=== PATIENT | male | born 1970 | race Caucasian/White ===

== ENCOUNTER 2020-01-10 14:39 | Emergency (ER) | payer MEDICAID ==
[~2020-01-10] VITALS: Ht 185.4 cm; Wt 78.0 kg
[~2020-01-10 14:39] MED LIST: ALLO100T PO; DIAZ5TAB PO; HYDR-3965 PO; NICO-687 TD; POTA10TA19 PO
[2020-01-10 14:41] VITALS: BP 112/68
--- NOTE | 2020-01-10 16:15 | NUR ---
Pt left the fast track area to go out and smoke after being told he could not do that by a tech.
[2020-01-10] MEDS ORDERED: DICL50TA8 PO (16:47)
--- NOTE | 2020-01-10 17:15 | NUR ---
Pt returns to the ED lobby wanting to come back in and be seen. Pt allowed to return. Pt refused knee immobilizer and crutches. Pt then left again with discharge papers in hand, no assessment by RN.
== END 2020-01-10 17:43 | disposition home or self-care (01) ==
LOC: ER 14:39
DX: M25.562 Pain in left knee (principal); Z88.0 Allergy status to penicillin; Z79.899 Other long term (current) drug therapy
CPT/HCPCS: 73560; 99283

== ENCOUNTER 2020-01-22 18:21 | Emergency (ER) | payer MEDICAID ==
[~2020-01-22] VITALS: Ht 180.3 cm; Wt 76.3 kg
[~2020-01-22 18:21] MED LIST changes: +DICL50TA8 PO
[2020-01-22 18:26] VITALS: BP 150/95
== END 2020-01-22 19:22 | disposition home or self-care (01) ==
LOC: ER 18:21
DX: S00.01XA Abrasion of scalp, initial encounter (principal); Z86.69 Personal history of other diseases of the nervous system and sense organs; Z59.0 Homelessness; Z79.899 Other long term (current) drug therapy; X58.XXXA Exposure to other specified factors, initial encounter; Y93.89 Activity, other specified; Y92.89 Other specified places as the place of occurrence of the external cause; Y99.8 Other external cause status
CPT/HCPCS: 99282

== ENCOUNTER 2020-01-24 09:51 | Emergency (ER) | payer MEDICAID ==
[~2020-01-24] VITALS: Ht 180.3 cm; Wt 79.5 kg
[2020-01-24] MEDS ORDERED: CEPH250T PO (10:01)
[2020-01-24 10:02] VITALS: BP 166/105
--- NOTE | 2020-01-24 10:10 | NUR ---
Seen and asssessed patient in triage by provider Leatha GUERIN.
== END 2020-01-24 10:12 | disposition home or self-care (01) ==
LOC: ER 09:51
DX: S01.00XA Unspecified open wound of scalp, initial encounter (principal); L03.811 Cellulitis of head [any part, except face]; F15.90 Other stimulant use, unspecified, uncomplicated; Z86.69 Personal history of other diseases of the nervous system and sense organs; Z59.0 Homelessness; Z79.2 Long term (current) use of antibiotics; Z79.899 Other long term (current) drug therapy; X58.XXXA Exposure to other specified factors, initial encounter; Y93.89 Activity, other specified; Y92.89 Other specified places as the place of occurrence of the external cause; Y99.8 Other external cause status
CPT/HCPCS: 99283

== ENCOUNTER 2020-02-23 09:47 | Emergency (ER) | payer MEDICAID ==
[~2020-02-23] VITALS: Ht 180.3 cm; Wt 80.0 kg
--- NOTE | 2020-02-23 10:19 | NUR ---
patient bp sbp 90's, Dr Belcher made aware,in addition,patient was also complaining of leg and shoulder pain,MD aware.
--- NOTE | 2020-02-23 10:20 | NUR ---
patient on trendelenberg.
--- NOTE | 2020-02-23 11:15 | NUR ---
c/o left arm and shoulder pain,Dr. Stacy made aware.
[2020-02-23 11:34] LABS: BASOPHILS # (AUTO) 0.1 X10'3 (0-0.2); BASOPHILS % (AUTO) 0.6 % (0-1); EOSINOPHILS # (AUTO) 0.1 X10'3 (0-0.9); EOSINOPHILS % (AUTO) 1.1 % (0-6); HEMATOCRIT 40.9 % (42.0-52.0); HEMOGLOBIN 13.2 g/dl (14.0-17.9); LYMPHOCYTES # (AUTO) 1.5 X10'3 (1.1-4.8); LYMPHOCYTES % (AUTO) 12.4 % (21-51); MEAN CORPUSCULAR HGB CONC 32.3 g/dL (33.0-36.5); MEAN CORPUSCULAR VOLUME 95.9 FL (78-98); MEAN PLATELET VOLUME 7.3 FL (7.4-10.4); MONOCYTES % (AUTO) 8.6 % (2-12); NEUTROPHILS # (AUTO) 9.4 X10'3 (1.8-7.7); NEUTROPHILS % (AUTO) 77.3 % (42-75); PLATELET COUNT 264 X10'3 (140-440); RED BLOOD COUNT 4.26 X10'6 (4.70-6.10); RED CELL DISTRIBUTION WIDTH 14.9 % (11.5-14.5); WHITE BLOOD COUNT 12.2 X10'3 (4.5-11.0)
[2020-02-23] MEDS ORDERED: acetaminophen 325mg tablet PO ONE (11:45)
[2020-02-23] MEDS ORDERED: ibuprofen tablet 400 MG TABLET PO ONE (11:45)
[2020-02-23 11:48] LABS: ALANINE AMINOTRANSFERASE 18 U/L (12-78); ALBUMIN 2.8 G/DL (3.4-5.0); ALBUMIN/GLOBULIN RATIO 0.7 (1.1-1.5); ALKALINE PHOSPHATASE 82 IU/L (46-116); ANION GAP 9 (8-16); ASPARTATE AMINO TRANSFERASE 24 U/L (10-37); BILIRUBIN,TOTAL 0.3 MG/DL (0.1-1.0); BLOOD UREA NITROGEN 11 MG/DL (7-18); BUN/CREATININE RATIO 12.2 (5.4-32.0); CALCIUM 8.4 MG/DL (8.5-10.1); CHLORIDE 108 MMOL/L (99-107); GLUCOSE 97 MG/DL (70-104); SODIUM 142 MMOL/L (135-145); TOTAL CARBON DIOXIDE 25.2 MMOL/L (24-32); TOTAL PROTEIN 6.9 G/DL (6.4-8.2); eGFR 89 ML/MIN
--- NOTE | 2020-02-23 11:54 | NUR ---
Pt states has been drinking a lot of alcohol lately. Last drank a beer this morning, whiskey the prior day. Pt states "alot" and thinks he is going through withdrawals.
--- NOTE | 2020-02-23 12:00 | NUR ---
Radiology at bedside.
[2020-02-23 13:25] VITALS: BP 123/93
== END 2020-02-23 13:15 | disposition home or self-care (01) ==
LOC: ER 09:47
DX: I95.9 Hypotension, unspecified (principal); M25.512 Pain in left shoulder; H53.8 Other visual disturbances; M54.2 Cervicalgia; F17.200 Nicotine dependence, unspecified, uncomplicated; F10.10 Alcohol abuse, uncomplicated; F15.90 Other stimulant use, unspecified, uncomplicated; Z86.69 Personal history of other diseases of the nervous system and sense organs; Z59.0 Homelessness; Z79.899 Other long term (current) drug therapy
CPT/HCPCS: 36415; 71045; 73030; 80053; 83605; 84484; 85025; 93005; 99285

== ENCOUNTER 2020-10-26 12:07 | Inpatient (IN) | payer MEDICAID ==
[~2020-10-26] VITALS: Ht 180.3 cm; Wt 80.7 kg
[2020-10-26] MEDS ORDERED: normal saline 1000ml 1,000 ML IV ONE (13:05)
[2020-10-26 13:35] LABS: BASOPHILS # (AUTO) 0.1 X10'3 (0-0.2); BASOPHILS % (AUTO) 0.4 % (0-1); EOSINOPHILS % (AUTO) 0.3 % (0-6); HEMATOCRIT 42.8 % (42.0-52.0); HEMOGLOBIN 14.2 g/dl (14.0-17.9); LYMPHOCYTES # (AUTO) 1.5 X10'3 (1.1-4.8); LYMPHOCYTES % (AUTO) 11.5 % (21-51); MEAN CORPUSCULAR HEMOGLOBIN 30.2 PG (27.0-31.0); MEAN CORPUSCULAR HGB CONC 33.3 g/dL (33.0-36.5); MEAN CORPUSCULAR VOLUME 90.9 FL (78-98); MEAN PLATELET VOLUME 7.5 FL (7.4-10.4); MONOCYTES # (AUTO) 1.5 X10'3 (0-0.9); MONOCYTES % (AUTO) 11.5 % (2-12); NEUTROPHILS # (AUTO) 10.1 X10'3 (1.8-7.7); NEUTROPHILS % (AUTO) 76.3 % (42-75); PLATELET COUNT 369 X10'3 (140-440); RED BLOOD COUNT 4.71 X10'6 (4.70-6.10); RED CELL DISTRIBUTION WIDTH 15.3 % (11.5-14.5); WHITE BLOOD COUNT 13.3 X10'3 (4.5-11.0)
[2020-10-26 13:49] LABS: ALANINE AMINOTRANSFERASE 39 U/L (12-78); ALBUMIN 3.3 G/DL (3.4-5.0); ALBUMIN/GLOBULIN RATIO 0.7 (1.1-1.5); ALKALINE PHOSPHATASE 81 IU/L (46-116); ANION GAP 13 (8-16); ASPARTATE AMINO TRANSFERASE 28 U/L (10-37); BILIRUBIN,TOTAL 0.7 MG/DL (0.1-1.0); BLOOD UREA NITROGEN 15 MG/DL (7-18); BUN/CREATININE RATIO 11.2 (5.4-32.0); CALCIUM 9.5 MG/DL (8.5-10.1); CHLORIDE 97 MMOL/L (99-107); CREATININE 1.34 MG/DL (0.60-1.10); GLUCOSE 116 MG/DL (70-104); SODIUM 133 MMOL/L (135-145); TOTAL CARBON DIOXIDE 23.4 MMOL/L (24-32); TOTAL PROTEIN 7.8 G/DL (6.4-8.2); eGFR 56 ML/MIN
[2020-10-26] MEDS ORDERED: LIDOcaine 1% W/epiNEPHrine 1:200,000 10ml vial IJ ONE (14:05)
[2020-10-26 15:31] LABS: C-REACTIVE PROTEIN 13.61 MG/DL (0.0-0.5)
[2020-10-26 16:04] LABS: APPEARANCE,SYNOVIAL FLUID CLOUDY; COLOR,SYNOVIAL FLUID YELLOW; LYMPHOCYTES,SYNOVIAL FLUID 2 % (0-75); MONOCYTES,SYNOVIAL FLUID 6 % (0-0); NEUTROPHILS,SYNOVIAL FLUID 92 % (0-25); SYN RBC 625 /CU MM (0); SYN WBC 40250 /CU MM (0-200)
[2020-10-26 16:05] LABS: SYNOVIAL FLUID CRYSTALS QT NO CRYSTALS SEEN
[2020-10-26] MEDS ORDERED: piperacillin/tazo 3.375gm/50ml 50 ML IV ONE (16:30)
[2020-10-26] MEDS ORDERED: vancomycin/NS 1 GM ADD-VANTAGE 250 ML IV ONE (16:30)
[2020-10-26] MEDS ORDERED: potassium Cl 40MEQ/1/2NS 520ml 520 ML IV PRN ×2 (16:40)
[2020-10-26] MEDS ORDERED: LORazepam 2 mg/ml vial IV PRN ×2 (16:40)
[2020-10-26] MEDS ORDERED: magnesium hydroxide 30ml (MOM) UD suspension PO PRN (16:40)
[2020-10-26] MEDS ORDERED: ondansetron/PF 4mg/2ml inj IV PRN (16:40)
[2020-10-26] MEDS ORDERED: mag hydrox/Alum hydrox/simeth 30ml oral suspension PO PRN (16:40)
[2020-10-26] MEDS ORDERED: haloperidol 5mg tablet PO PRN ×2 (16:40)
[2020-10-26] MEDS ORDERED: thiamine inj. 100 MG in normal saline 100ml IV soln 100 ML IV ONE (16:40)
[2020-10-26] MEDS ORDERED: albuterol 2.5 MG/3 ML nebule NEB PRN (16:40)
[2020-10-26] MEDS ORDERED: HYDROcodone/acetaminophen 5mg/325mg tablet PO PRN (16:40)
[2020-10-26] MEDS ORDERED: LORazepam 1 MG tablet PO PRN (16:40)
[2020-10-26] MEDS ORDERED: ipratropium/albuterol 3ml nebule NEB PRN (16:40)
[2020-10-26] MEDS ORDERED: acetaminophen 325mg tablet PO PRN ×2 (16:40)
[2020-10-26] MEDS ORDERED: dextrose 50%-water 50ml dispensing syringe IV PRN (16:40)
[2020-10-26] MEDS ORDERED: potassium Cl 20 mEq SR tablet PO PRN ×2 (16:40)
[2020-10-26] MEDS ORDERED: haloperidol lactate 5mg/ml inj IM PRN ×2 (16:40)
[2020-10-26] MEDS ORDERED: thiamine 100mg/ml 2ml inj. IV ONE (16:40)
[2020-10-26] MEDS ORDERED: NAPR-56 PO (16:42)
[2020-10-26] MEDS: normal saline 1000ml 1,000 ML IV SCH (17:31)
--- NOTE | 2020-10-26 18:56 | NUR ---
Patient in room ED 9. I have received report from Susan KLEIN and had the opportunity to ask questions and assume patient care.
[2020-10-26 19:05] VITALS: BP 115/76
[2020-10-26] MEDS: K and/or MAG REPLACEMENT MC SCH (20:00)
[2020-10-26] MEDS ORDERED: temazepam 15mg capsule PO PRN (21:00)
[2020-10-26] MEDS: HYDROcodone/acetaminophen 10/325mg tab PO PRN (21:01)
[2020-10-26] MEDS: enoxaparin 40mg/0.4ml syringe SQ SCH (21:02)
[2020-10-26 22:00] VITALS: BP 116/68
[2020-10-26] MEDS: piperacillin/tazo 4.5gm/100ml 100 ML IV SCH (23:36)
[2020-10-27] VITALS (9 sets, daily range): BP systolic 98–123; BP diastolic 64–89
[2020-10-27] MEDS: HYDROcodone/acetaminophen 10/325mg tab PO PRN ×3 (02:26→21:32)
[2020-10-27] MEDS: normal saline 1000ml 1,000 ML IV SCH ×3 (02:40→16:18)
[2020-10-27] MEDS: vancomycin/NS 1 GM ADD-VANTAGE 250 ML IV SCH ×2 (04:31→16:19)
--- NOTE | 2020-10-27 06:16 | NUR ---
Problems reprioritized. Patient report given, questions answered & plan of care reviewed with Alana RN.
--- NOTE | 2020-10-27 06:40 | NUR ---
Patient in room ORTHO 4017. I have received report from ERNIE Lozano and had the opportunity to ask questions and assume patient care.
[2020-10-27 08:30] LABS: BASOPHILS # (AUTO) 0.1 X10'3 (0-0.2); BASOPHILS % (AUTO) 0.6 % (0-1); EOSINOPHILS # (AUTO) 0.1 X10'3 (0-0.9); EOSINOPHILS % (AUTO) 1.5 % (0-6); HEMATOCRIT 38.5 % (42.0-52.0); HEMOGLOBIN 12.8 g/dl (14.0-17.9); LYMPHOCYTES # (AUTO) 1.4 X10'3 (1.1-4.8); LYMPHOCYTES % (AUTO) 17.3 % (21-51); MEAN CORPUSCULAR HEMOGLOBIN 30.5 PG (27.0-31.0); MEAN CORPUSCULAR HGB CONC 33.3 g/dL (33.0-36.5); MEAN CORPUSCULAR VOLUME 91.6 FL (78-98); MEAN PLATELET VOLUME 7.7 FL (7.4-10.4); MONOCYTES # (AUTO) 1.2 X10'3 (0-0.9); MONOCYTES % (AUTO) 14.7 % (2-12); NEUTROPHILS # (AUTO) 5.4 X10'3 (1.8-7.7); NEUTROPHILS % (AUTO) 65.9 % (42-75); PLATELET COUNT 321 X10'3 (140-440); RED BLOOD COUNT 4.21 X10'6 (4.70-6.10); RED CELL DISTRIBUTION WIDTH 15.6 % (11.5-14.5); WHITE BLOOD COUNT 8.3 X10'3 (4.5-11.0)
[2020-10-27 08:54] LABS: ALANINE AMINOTRANSFERASE 28 U/L (12-78); ALBUMIN 2.5 G/DL (3.4-5.0); ALBUMIN/GLOBULIN RATIO 0.6 (1.1-1.5); ALKALINE PHOSPHATASE 66 IU/L (46-116); AMYLASE 140 U/L (25-115); ANION GAP 8 (8-16); ASPARTATE AMINO TRANSFERASE 19 U/L (10-37); BILIRUBIN,TOTAL 0.5 MG/DL (0.1-1.0); BLOOD UREA NITROGEN 13 MG/DL (7-18); BUN/CREATININE RATIO 15.1 (5.4-32.0); CALCIUM 8.9 MG/DL (8.5-10.1); CHLORIDE 103 MMOL/L (99-107); CREATININE 0.86 MG/DL (0.60-1.10); GLUCOSE 157 MG/DL (70-104); LIPASE 668 U/L (73-393); PHOSPHORUS 2.9 MG/DL (2.3-4.5); POTASSIUM 3.5 MMOL/L (3.5-5.1); SODIUM 136 MMOL/L (135-145); TOTAL CARBON DIOXIDE 24.6 MMOL/L (24-32); TOTAL PROTEIN 6.7 G/DL (6.4-8.2); eGFR > 90 ML/MIN
--- NOTE | 2020-10-27 09:32 | NUR ---
Initial: Pt admit with septic left knee arthropathy. Pt initially on a regular diet documented with 100% PO intake, currently NPO. Pt with EtOH hx, receiving routine Thiamine, Folic acid, and MVI. community services coordinator has been consulted for EtOH and illicit drug hx. LBM 10/26. No nutrition intervention implemented at this time given NPO status. Will continue to follow and make recommendations as appropriate with diet advancement. Recommendations: 1) Advance to regular diet as medically indicated 2) Monitor need for ONS/additional protein with diet advancement 3) Continue routine Thiamine, Folic acid, and MVI for EtOH hx 4) Bowel care per rx 5) Scaled weights per rx Addendum: 10/27/20 at [address] Amended: Links added.
[2020-10-27] MEDS: K and/or MAG REPLACEMENT MC SCH ×2 (09:44→20:00)
[2020-10-27] MEDS: thiamine 100mg tablet PO SCH (09:53)
[2020-10-27] MEDS: folic acid 1mg tablet PO SCH (09:53)
[2020-10-27] MEDS: piperacillin/tazo 4.5gm/100ml 100 ML IV SCH ×2 (09:53→18:03)
[2020-10-27] MEDS: nicotine 21mg patch - 24 hr TD SCH (09:54)
[2020-10-27] MEDS: multivitamins, therapeutics tablet PO SCH (09:54)
[2020-10-27] MEDS ORDERED: sevoflurane 250ml liquid IH ONE (14:55)
[2020-10-27] MEDS ORDERED: midazolam 1 mg/ML 2ml injection ONE (14:59)
[2020-10-27] MEDS ORDERED: fentaNYL /PF 50mcg/ml 5ml ampule ONE (14:59)
[2020-10-27] MEDS ORDERED: BUPIVAcaine/PF 2.5 mg/ml (0.25%) 30ml vial ONE (15:23)
--- NOTE | 2020-10-27 15:28 | NUR ---
Received from OR via , accompanied by Anesthesiologist DR CAMARENA and report given by Anesthesiolgist. AWAKENS TO VOICE. VITALS STABLE. DRESSING DI. GISELE PAIN.
[2020-10-27] MEDS ORDERED: ringers solution, lacted 1,000 ML IV SCH (15:40)
[2020-10-27] MEDS ORDERED: proCHLORperazine 10 MG/2 ml inj IV PRN (15:40)
[2020-10-27] MEDS ORDERED: meperidine/PF 25mg/ml syringe IV PRN ×3 (15:40)
[2020-10-27] MEDS ORDERED: morphine 2 MG/ML inj. syringe IV PRN (15:40)
[2020-10-27] MEDS ORDERED: ondansetron/PF 4mg/2ml inj IV PRN (15:40)
[2020-10-27] MEDS ORDERED: morphine 4 MG/ML inj SYRINge IV PRN (15:40)
[2020-10-27] MEDS ORDERED: ondansetron/PF 4mg/2ml inj ONE (15:45)
[2020-10-27] MEDS ORDERED: LIDOcaine 2% (20mg/ml) 5ml vial ONE (15:45)
[2020-10-27] MEDS ORDERED: dexamethasone sod phosphate 4mg/ml inj. ONE (15:45)
[2020-10-27] MEDS ORDERED: propofol inj 20 ML IV ONE (15:45)
--- NOTE | 2020-10-27 15:55 | NUR ---
Received report from MARKETING EXECUTIVEDwaine.
--- NOTE | 2020-10-27 16:08 | NUR ---
Report called to receiving nurse. Transferred via BED Belongings . Special Issues communicated to receiving nurse. AWAKE AND ORIENTED. VITALS STABLE. DRESSING DI. GISELE PAIN. TO ORTHO RM 4017 AT THIS TIME.
[2020-10-27 17:01] LABS: APPEARANCE,SYNOVIAL FLUID CLOUDY; COLOR,SYNOVIAL FLUID YELLOW; LYMPHOCYTES,SYNOVIAL FLUID 41 % (0-75); MONOCYTES,SYNOVIAL FLUID 1 % (0-0); NEUTROPHILS,SYNOVIAL FLUID 58 % (0-25); SYN RBC 4000 /CU MM (0); SYN WBC 20500 /CU MM (0-200)
--- NOTE | 2020-10-27 18:20 | NUR ---
Problems reprioritized. Patient report given, questions answered & plan of care reviewed with ERNIE Lin.
[2020-10-27] MEDS: enoxaparin 40mg/0.4ml syringe SQ SCH (20:29)
[2020-10-28] VITALS (7 sets, daily range): BP systolic 98–121; BP diastolic 62–81
[2020-10-28] MEDS: piperacillin/tazo 4.5gm/100ml 100 ML IV SCH ×4 (00:18→23:49)
[2020-10-28] MEDS ORDERED: VANCOMYCIN LEVEL IV ONE (04:30)
[2020-10-28 04:53] LABS: BASOPHILS % (AUTO) 0.4 % (0-1); EOSINOPHILS % (AUTO) 0 % (0-6); HEMATOCRIT 38.7 % (42.0-52.0); HEMOGLOBIN 12.7 g/dl (14.0-17.9); LYMPHOCYTES # (AUTO) 1.1 X10'3 (1.1-4.8); LYMPHOCYTES % (AUTO) 9.8 % (21-51); MEAN CORPUSCULAR HEMOGLOBIN 30.1 PG (27.0-31.0); MEAN CORPUSCULAR HGB CONC 32.8 g/dL (33.0-36.5); MEAN CORPUSCULAR VOLUME 91.7 FL (78-98); MONOCYTES # (AUTO) 0.8 X10'3 (0-0.9); MONOCYTES % (AUTO) 7.6 % (2-12); NEUTROPHILS # (AUTO) 8.8 X10'3 (1.8-7.7); NEUTROPHILS % (AUTO) 82.2 % (42-75); PLATELET COUNT 336 X10'3 (140-440); RED BLOOD COUNT 4.22 X10'6 (4.70-6.10); RED CELL DISTRIBUTION WIDTH 15.5 % (11.5-14.5); WHITE BLOOD COUNT 10.7 X10'3 (4.5-11.0)
[2020-10-28 05:00] LABS: ALANINE AMINOTRANSFERASE 24 U/L (12-78); ALBUMIN 2.3 G/DL (3.4-5.0); ALBUMIN/GLOBULIN RATIO 0.5 (1.1-1.5); ALKALINE PHOSPHATASE 61 IU/L (46-116); AMYLASE 81 U/L (25-115); ANION GAP 5 (8-16); ASPARTATE AMINO TRANSFERASE 16 U/L (10-37); BILIRUBIN,TOTAL 0.2 MG/DL (0.1-1.0); BLOOD UREA NITROGEN 14 MG/DL (7-18); BUN/CREATININE RATIO 15.4 (5.4-32.0); CALCIUM 8.8 MG/DL (8.5-10.1); CHLORIDE 104 MMOL/L (99-107); CREATININE 0.91 MG/DL (0.60-1.10); GLUCOSE 139 MG/DL (70-104); LIPASE 89 U/L (73-393); PHOSPHORUS 2.5 MG/DL (2.3-4.5); POTASSIUM 4.3 MMOL/L (3.5-5.1); SODIUM 135 MMOL/L (135-145); TOTAL PROTEIN 6.7 G/DL (6.4-8.2); VANCOMYCIN,TROUGH 7.6 UG/ML (6.0-14.0); eGFR 88 ML/MIN
[2020-10-28] MEDS: HYDROcodone/acetaminophen 10/325mg tab PO PRN ×4 (05:01→23:49)
[2020-10-28] MEDS: vancomycin/NS 1 GM ADD-VANTAGE 250 ML IV SCH ×3 (05:02→21:12)
--- NOTE | 2020-10-28 06:20 | NUR ---
Patient in room ORTHO 4017. I have received report from Riley KLEIN and had the opportunity to ask questions and assume patient care.
[2020-10-28] MEDS: K and/or MAG REPLACEMENT MC SCH ×2 (08:00→20:00)
[2020-10-28] MEDS: nicotine 21mg patch - 24 hr TD SCH (08:10)
[2020-10-28] MEDS: multivitamins, therapeutics tablet PO SCH (08:11)
[2020-10-28] MEDS: folic acid 1mg tablet PO SCH (08:11)
[2020-10-28] MEDS: thiamine 100mg tablet PO SCH (08:11)
[2020-10-28] MEDS: normal saline 1000ml 1,000 ML IV SCH ×2 (08:25→20:08)
--- NOTE | 2020-10-28 09:46 | NUR ---
NOC shift nurse reports patient as having a BM 10/28/20 Addendum: 10/28/20 at 3549 by Nathalie Olguin RN Amended: Links added.
--- NOTE | 2020-10-28 10:45 | NUR ---
pt had last drink 3 days ago. patient shows no signs of withdrawals Addendum: 10/28/20 at 1115 by Lopez HANNAH Amended: Links added.
--- NOTE | 2020-10-28 11:11 | NUR ---
Gisselle GUERIN aware of patient lab results for Rt Knee of Rare Gram pos Cocci in pares. No dressing change needed if dressing is DCI, dressing is CDI currently. Will continue to monitor.
--- NOTE | 2020-10-28 13:46 | NUR ---
Student documentation: I have reviewed all interventions, assessments performed and documented by Dank PLATA of [facility]. Student Medication Administration: For all medication-pass' in the time frame of [id number], all medication were reviewed, dispensed, administered and documented per hospital policy by Dank PLATA of [facility].
[2020-10-28] MEDS ORDERED: LORazepam 2 mg/ml vial IV PRN (16:40)
[2020-10-28] MEDS ORDERED: LORazepam 1 MG tablet PO PRN (16:40)
--- NOTE | 2020-10-28 18:00 | NUR ---
Patient in room ORTHO 4017. I have received report from ERNIE Zelaya and had the opportunity to ask questions and assume patient care.
--- NOTE | 2020-10-28 18:08 | NUR ---
Problems reprioritized. Patient report given, questions answered & plan of care reviewed with Shalonda KLEIN.
[2020-10-28] MEDS: lactobacillus rhamnosus 10,000 MMU CELLS/CAPSULE PO SCH (20:07)
[2020-10-28] MEDS: enoxaparin 40mg/0.4ml syringe SQ SCH (20:08)
[2020-10-29] MEDS ORDERED: VANCOMYCIN LEVEL IV ONE (04:30)
[2020-10-29] MEDS: normal saline 1000ml 1,000 ML IV SCH ×3 (04:40→21:00)
[2020-10-29 04:51] LABS: BASOPHILS # (AUTO) 0.1 X10'3 (0-0.2); BASOPHILS % (AUTO) 1.1 % (0-1); EOSINOPHILS # (AUTO) 0.1 X10'3 (0-0.9); EOSINOPHILS % (AUTO) 1.6 % (0-6); HEMATOCRIT 35.9 % (42.0-52.0); HEMOGLOBIN 11.8 g/dl (14.0-17.9); LYMPHOCYTES # (AUTO) 2.8 X10'3 (1.1-4.8); LYMPHOCYTES % (AUTO) 38.2 % (21-51); MEAN CORPUSCULAR HGB CONC 32.7 g/dL (33.0-36.5); MEAN CORPUSCULAR VOLUME 91.5 FL (78-98); MEAN PLATELET VOLUME 7.6 FL (7.4-10.4); MONOCYTES % (AUTO) 12.9 % (2-12); NEUTROPHILS # (AUTO) 3.4 X10'3 (1.8-7.7); NEUTROPHILS % (AUTO) 46.2 % (42-75); PLATELET COUNT 342 X10'3 (140-440); RED BLOOD COUNT 3.92 X10'6 (4.70-6.10); RED CELL DISTRIBUTION WIDTH 15.3 % (11.5-14.5); WHITE BLOOD COUNT 7.4 X10'3 (4.5-11.0)
[2020-10-29 05:00] LABS: ALANINE AMINOTRANSFERASE 31 U/L (12-78); ALBUMIN 2.1 G/DL (3.4-5.0); ALBUMIN/GLOBULIN RATIO 0.5 (1.1-1.5); ALKALINE PHOSPHATASE 51 IU/L (46-116); AMYLASE 142 U/L (25-115); ANION GAP 9 (8-16); ASPARTATE AMINO TRANSFERASE 24 U/L (10-37); BILIRUBIN,TOTAL 0.2 MG/DL (0.1-1.0); BLOOD UREA NITROGEN 11 MG/DL (7-18); BUN/CREATININE RATIO 11.8 (5.4-32.0); CHLORIDE 109 MMOL/L (99-107); CREATININE 0.93 MG/DL (0.60-1.10); GLUCOSE 104 MG/DL (70-104); LIPASE 460 U/L (73-393); PHOSPHORUS 3.2 MG/DL (2.3-4.5); POTASSIUM 4.1 MMOL/L (3.5-5.1); SODIUM 142 MMOL/L (135-145); TOTAL CARBON DIOXIDE 24.2 MMOL/L (24-32); TOTAL PROTEIN 6.2 G/DL (6.4-8.2); VANCOMYCIN,TROUGH 17.4 UG/ML (6.0-14.0); eGFR 86 ML/MIN
[2020-10-29] MEDS: vancomycin/NS 1 GM ADD-VANTAGE 250 ML IV SCH ×3 (05:01→21:00)
[2020-10-29] MEDS: HYDROcodone/acetaminophen 10/325mg tab PO PRN ×4 (05:01→17:52)
--- NOTE | 2020-10-29 05:46 | NUR ---
ASSUMED CARE OF PATIENT FROM SUZY KLEIN AT 0515 WITH VERBAL REPORT.
[2020-10-29 06:00] VITALS: BP 112/69
--- NOTE | 2020-10-29 06:34 | NUR ---
REPORT GIVEN TO TAMERA Merino RN
--- NOTE | 2020-10-29 06:45 | NUR ---
Patient in room ORTHO 4017. I have received report from ERNIE Ramírez and had the opportunity to ask questions and assume patient care.
[2020-10-29] MEDS: piperacillin/tazo 4.5gm/100ml 100 ML IV SCH ×2 (07:51→15:51)
[2020-10-29] MEDS: folic acid 1mg tablet PO SCH (07:52)
[2020-10-29] MEDS: thiamine 100mg tablet PO SCH (07:52)
[2020-10-29] MEDS: multivitamins, therapeutics tablet PO SCH (07:52)
[2020-10-29] MEDS: lactobacillus rhamnosus 10,000 MMU CELLS/CAPSULE PO SCH ×2 (07:52→20:05)
[2020-10-29] MEDS: nicotine 21mg patch - 24 hr TD SCH (07:57)
[2020-10-29] MEDS: K and/or MAG REPLACEMENT MC SCH ×2 (08:00→20:00)
[2020-10-29 11:00] VITALS: BP 129/86
[2020-10-29 18:00] VITALS: BP 116/77
--- NOTE | 2020-10-29 18:10 | NUR ---
Patient in room ORTHO 4017. I have received report from TAMERA KLEIN and had the opportunity to ask questions and assume patient care.
--- NOTE | 2020-10-29 18:40 | NUR ---
Problems reprioritized. Patient report given, questions answered & plan of care reviewed with ERNIE Bueno.
--- NOTE | 2020-10-29 20:00 | NUR ---
took hs medications no complaints at this time.
[2020-10-29] MEDS: enoxaparin 40mg/0.4ml syringe SQ SCH (20:05)
--- NOTE | 2020-10-29 21:40 | NUR ---
up ambulating to brp. tolerated well. vss.
[2020-10-29 21:55] VITALS: BP 108/63
--- NOTE | 2020-10-30 00:05 | NUR ---
RESTING WITHOUT CHANGES.
[2020-10-30] MEDS: piperacillin/tazo 4.5gm/100ml 100 ML IV SCH ×2 (00:18→07:12)
[2020-10-30 02:00] VITALS: BP 110/78
[2020-10-30] MEDS: HYDROcodone/acetaminophen 10/325mg tab PO PRN ×4 (02:32→21:39)
--- NOTE | 2020-10-30 02:33 | NUR ---
pt awoke up to brp to void then medicated for c/o pain with po norco.
[2020-10-30] MEDS: vancomycin/NS 1 GM ADD-VANTAGE 250 ML IV SCH ×3 (04:44→21:38)
--- NOTE | 2020-10-30 04:47 | NUR ---
pt awoke and vitals done after using brp, no changes at this time.
[2020-10-30 05:27] VITALS: BP 124/83
--- NOTE | 2020-10-30 05:48 | NUR ---
awoke c/o left knee pain medicated with norco for this.
--- NOTE | 2020-10-30 06:13 | NUR ---
Problems reprioritized. Patient report given, questions answered & plan of care reviewed with DANNY KLEIN. Addendum: 10/30/20 at 0614 by Ximena Mendosa RN Amended: Links added.
[2020-10-30] MEDS: folic acid 1mg tablet PO SCH (07:11)
[2020-10-30] MEDS: lactobacillus rhamnosus 10,000 MMU CELLS/CAPSULE PO SCH ×2 (07:11→21:39)
[2020-10-30] MEDS: multivitamins, therapeutics tablet PO SCH (07:12)
[2020-10-30] MEDS: nicotine 21mg patch - 24 hr TD SCH (07:12)
[2020-10-30] MEDS: thiamine 100mg tablet PO SCH (07:12)
[2020-10-30 07:21] LABS: BASOPHILS # (AUTO) 0.1 X10'3 (0-0.2); BASOPHILS % (AUTO) 1.1 % (0-1); EOSINOPHILS # (AUTO) 0.2 X10'3 (0-0.9); EOSINOPHILS % (AUTO) 3.1 % (0-6); HEMATOCRIT 36.3 % (42.0-52.0); HEMOGLOBIN 12.1 g/dl (14.0-17.9); LYMPHOCYTES # (AUTO) 2.3 X10'3 (1.1-4.8); LYMPHOCYTES % (AUTO) 34.9 % (21-51); MEAN CORPUSCULAR HEMOGLOBIN 30.3 PG (27.0-31.0); MEAN CORPUSCULAR HGB CONC 33.3 g/dL (33.0-36.5); MEAN CORPUSCULAR VOLUME 91.1 FL (78-98); MEAN PLATELET VOLUME 7.4 FL (7.4-10.4); MONOCYTES % (AUTO) 14.5 % (2-12); NEUTROPHILS # (AUTO) 3.1 X10'3 (1.8-7.7); NEUTROPHILS % (AUTO) 46.4 % (42-75); PLATELET COUNT 366 X10'3 (140-440); RED BLOOD COUNT 3.99 X10'6 (4.70-6.10); RED CELL DISTRIBUTION WIDTH 15.1 % (11.5-14.5); WHITE BLOOD COUNT 6.6 X10'3 (4.5-11.0)
[2020-10-30 07:48] LABS: ALANINE AMINOTRANSFERASE 36 U/L (12-78); ALBUMIN 2.2 G/DL (3.4-5.0); ALBUMIN/GLOBULIN RATIO 0.5 (1.1-1.5); ALKALINE PHOSPHATASE 52 IU/L (46-116); AMYLASE 92 U/L (25-115); ANION GAP 9 (8-16); ASPARTATE AMINO TRANSFERASE 26 U/L (10-37); BILIRUBIN,TOTAL 0.2 MG/DL (0.1-1.0); BLOOD UREA NITROGEN 9 MG/DL (7-18); BUN/CREATININE RATIO 9.2 (5.4-32.0); CALCIUM 8.9 MG/DL (8.5-10.1); CHLORIDE 107 MMOL/L (99-107); CREATININE 0.98 MG/DL (0.60-1.10); GLUCOSE 84 MG/DL (70-104); LIPASE 106 U/L (73-393); PHOSPHORUS 3.5 MG/DL (2.3-4.5); SODIUM 142 MMOL/L (135-145); TOTAL CARBON DIOXIDE 26.1 MMOL/L (24-32); TOTAL PROTEIN 6.4 G/DL (6.4-8.2); eGFR 81 ML/MIN
[2020-10-30] MEDS: K and/or MAG REPLACEMENT MC SCH ×2 (08:00→20:00)
[2020-10-30 10:00] VITALS: BP 103/65
[2020-10-30] MEDS ORDERED: LORazepam 2 mg/ml vial IV PRN (16:40)
[2020-10-30] MEDS ORDERED: LORazepam 1 MG tablet PO PRN (16:40)
--- NOTE | 2020-10-30 16:45 | NUR ---
acting as assistant chief nursing officer i reviewed student nurse charting
[2020-10-30 18:00] VITALS: BP 125/80
[2020-10-30] MEDS: enoxaparin 40mg/0.4ml syringe SQ SCH (21:38)
[2020-10-30 22:00] VITALS: BP 127/78
[2020-10-31] MEDS: HYDROcodone/acetaminophen 10/325mg tab PO PRN ×5 (03:00→22:10)
[2020-10-31] MEDS: vancomycin/NS 1 GM ADD-VANTAGE 250 ML IV SCH ×3 (04:53→20:07)
[2020-10-31 06:30] VITALS: BP 114/85
--- NOTE | 2020-10-31 06:31 | NUR ---
reported to days. noted pt resting w/o distress. vanco hanging. pending PICC line placement after order.
--- NOTE | 2020-10-31 06:36 | NUR ---
Patient in room ORTHO 4017. I have received report from Petar and had the opportunity to ask questions and assume patient care.
--- NOTE | 2020-10-31 07:14 | NUR ---
Patient in room ORTHO 4017. I have received report from ERNIE Davey and had the opportunity to ask questions and assume patient care.
[2020-10-31] MEDS: thiamine 100mg tablet PO SCH (07:20)
[2020-10-31] MEDS: multivitamins, therapeutics tablet PO SCH (07:20)
[2020-10-31] MEDS: folic acid 1mg tablet PO SCH (07:20)
[2020-10-31] MEDS: lactobacillus rhamnosus 10,000 MMU CELLS/CAPSULE PO SCH ×2 (07:20→20:07)
[2020-10-31] MEDS: K and/or MAG REPLACEMENT MC SCH ×2 (08:00→20:00)
[2020-10-31] MEDS: nicotine 21mg patch - 24 hr TD SCH (08:00)
[2020-10-31 08:17] LABS: BASOPHILS # (AUTO) 0.1 X10'3 (0-0.2); BASOPHILS % (AUTO) 1.3 % (0-1); EOSINOPHILS # (AUTO) 0.3 X10'3 (0-0.9); EOSINOPHILS % (AUTO) 4.3 % (0-6); HEMATOCRIT 40.7 % (42.0-52.0); HEMOGLOBIN 13.4 g/dl (14.0-17.9); LYMPHOCYTES # (AUTO) 2.4 X10'3 (1.1-4.8); LYMPHOCYTES % (AUTO) 36.6 % (21-51); MEAN PLATELET VOLUME 7.4 FL (7.4-10.4); MONOCYTES % (AUTO) 15.8 % (2-12); NEUTROPHILS # (AUTO) 2.8 X10'3 (1.8-7.7); PLATELET COUNT 420 X10'3 (140-440); RED BLOOD COUNT 4.47 X10'6 (4.70-6.10); RED CELL DISTRIBUTION WIDTH 15.5 % (11.5-14.5); WHITE BLOOD COUNT 6.6 X10'3 (4.5-11.0)
[2020-10-31 08:26] LABS: ALANINE AMINOTRANSFERASE 41 U/L (12-78); ALBUMIN 2.6 G/DL (3.4-5.0); ALBUMIN/GLOBULIN RATIO 0.6 (1.1-1.5); ALKALINE PHOSPHATASE 60 IU/L (46-116); AMYLASE 111 U/L (25-115); ANION GAP 7 (8-16); ASPARTATE AMINO TRANSFERASE 29 U/L (10-37); BILIRUBIN,TOTAL 0.3 MG/DL (0.1-1.0); BLOOD UREA NITROGEN 11 MG/DL (7-18); BUN/CREATININE RATIO 11.2 (5.4-32.0); CALCIUM 9.6 MG/DL (8.5-10.1); CHLORIDE 105 MMOL/L (99-107); CREATININE 0.98 MG/DL (0.60-1.10); GLUCOSE 82 MG/DL (70-104); LIPASE 212 U/L (73-393); PHOSPHORUS 3.5 MG/DL (2.3-4.5); SODIUM 141 MMOL/L (135-145); TOTAL CARBON DIOXIDE 28.8 MMOL/L (24-32); TOTAL PROTEIN 7.2 G/DL (6.4-8.2); eGFR 81 ML/MIN
[2020-10-31 10:00] VITALS: BP 115/78
[2020-10-31 18:00] VITALS: BP 128/84
--- NOTE | 2020-10-31 18:20 | NUR ---
Patient in room ORTHO 4017. I have received report from Sidra KLEIN and Marlena KLEIN and had the opportunity to ask questions and assume patient care.
--- NOTE | 2020-10-31 18:47 | NUR ---
[place] documentation: I have reviewed and agree with all interventions, assessments performed and documented by ERNIE Herrera. [place] Medication Administration: For this medication-pass time frame, all medication were reviewed, dispensed, administered and documented per hospital policy by ernie Herrera .
--- NOTE | 2020-10-31 18:47 | NUR ---
Problems reprioritized. Patient report given, questions answered & plan of care reviewed with ERNIE Davis.
[2020-10-31] MEDS: enoxaparin 40mg/0.4ml syringe SQ SCH (20:07)
[2020-10-31 22:00] VITALS: BP 100/62
[2020-11-01] MEDS: vancomycin/NS 1 GM ADD-VANTAGE 250 ML IV SCH ×3 (04:32→21:26)
[2020-11-01] MEDS: HYDROcodone/acetaminophen 10/325mg tab PO PRN ×3 (04:33→19:38)
[2020-11-01 06:00] VITALS: BP 119/88
--- NOTE | 2020-11-01 06:40 | NUR ---
Problems reprioritized. Patient report given, questions answered & plan of care reviewed with Charissa KLEIN.
--- NOTE | 2020-11-01 07:27 | NUR ---
Patient in room ORTHO 4017. I have received report from ERNIE GRULLON and had the opportunity to ask questions and assume patient care.
[2020-11-01] MEDS: K and/or MAG REPLACEMENT MC SCH ×2 (08:00→20:00)
[2020-11-01] MEDS: nicotine 21mg patch - 24 hr TD SCH (08:00)
[2020-11-01 08:11] VITALS: BP 117/84
[2020-11-01] MEDS: multivitamins, therapeutics tablet PO SCH (08:25)
[2020-11-01] MEDS: thiamine 100mg tablet PO SCH (08:25)
[2020-11-01] MEDS: lactobacillus rhamnosus 10,000 MMU CELLS/CAPSULE PO SCH ×2 (08:25→19:38)
[2020-11-01] MEDS: folic acid 1mg tablet PO SCH (08:26)
--- NOTE | 2020-11-01 09:29 | NUR ---
Medications, reviewed, dispensed, administered and documented by Barb ontiveros pl Addendum: 11/01/20 at 0930 by Debbie OLEA RN Medications, reviewed, dispensed, administered and documented by Ninfa PLATA per policy.
[2020-11-01 10:00] VITALS: BP 117/82
--- NOTE | 2020-11-01 10:22 | NUR ---
5 F DUAL LUMEN PICC LINE INFORMATION REF. [id number] LOT [id number] EXP. 06/17/21
--- NOTE | 2020-11-01 12:16 | NUR ---
Reassessment: Pt PO 100% avg regular diet meeting needs. LBM 10/30. No nutrition concerns at this time. Will continue to monitor. Recommendations: 1) continue regular diet 2) Thiamine, Folic acid, and MVI for EtOH hx 3) Bowel care per rx 4) Scaled weights per rx Addendum: 11/01/20 at [address] Amended: Links added.
[2020-11-01 16:00] VITALS: BP 124/87
[2020-11-01] MEDS ORDERED: LORazepam 2 mg/ml vial IV PRN (18:25)
[2020-11-01] MEDS ORDERED: LORazepam 0.5 MG tablet PO PRN (18:25)
--- NOTE | 2020-11-01 18:46 | NUR ---
Patient in room ORTHO 4017. I have received report from ERNIE Carrington and had the opportunity to ask questions and assume patient care.
--- NOTE | 2020-11-01 18:57 | NUR ---
Problems reprioritized. Patient report given, questions answered & plan of care reviewed with ERNIE DANIEL & CAMILLE SRN.
[2020-11-01] MEDS: enoxaparin 40mg/0.4ml syringe SQ SCH (19:39)
[2020-11-01 22:45] VITALS: BP 124/81
--- NOTE | 2020-11-01 23:41 | NUR ---
Student documentation: I have reviewed and agree with all interventions, assessments performed and documented by ERNIE Carrera. I filled out meat slicer assesment, other part of assesment was charted by Debi, and reviewed by Antonio deal RN
[2020-11-02] MEDS: HYDROcodone/acetaminophen 10/325mg tab PO PRN ×5 (02:18→20:53)
[2020-11-02] MEDS: vancomycin/NS 1 GM ADD-VANTAGE 250 ML IV SCH ×3 (04:54→20:42)
[2020-11-02 06:00] VITALS: BP 117/88
--- NOTE | 2020-11-02 06:10 | NUR ---
Problems reprioritized. Patient report given, questions answered & plan of care reviewed with Brenda.
[2020-11-02] MEDS: thiamine 100mg tablet PO SCH (07:12)
[2020-11-02] MEDS: lactobacillus rhamnosus 10,000 MMU CELLS/CAPSULE PO SCH ×2 (07:12→20:43)
[2020-11-02] MEDS: folic acid 1mg tablet PO SCH (07:12)
[2020-11-02] MEDS: multivitamins, therapeutics tablet PO SCH (07:12)
[2020-11-02] MEDS: K and/or MAG REPLACEMENT MC SCH ×2 (08:00→20:00)
[2020-11-02] MEDS: nicotine 21mg patch - 24 hr TD SCH (08:00)
--- NOTE | 2020-11-02 08:26 | NUR ---
Patient resting comfortably in bed this morning, pain med given for left knee pain, bed locked in lowest position, call light within reach, patient instructed to call for assistance, verbalized understanding.
[2020-11-02 10:00] VITALS: BP 109/78
--- NOTE | 2020-11-02 18:40 | NUR ---
I have received report from ERNIE Pickens and had the opportunity to ask questions and assume patient care.
[2020-11-02 19:52] VITALS: BP 111/76
[2020-11-02] MEDS: enoxaparin 40mg/0.4ml syringe SQ SCH (20:44)
[2020-11-02 22:00] VITALS: BP 105/62
--- NOTE | 2020-11-02 22:41 | NUR ---
Problems reprioritized. Patient report given, questions answered & plan of care reviewed with ERNIE Vazquez.
[2020-11-03] MEDS: vancomycin/NS 1 GM ADD-VANTAGE 250 ML IV SCH ×3 (05:10→21:21)
[2020-11-03] MEDS: HYDROcodone/acetaminophen 10/325mg tab PO PRN ×4 (05:26→19:50)
[2020-11-03 06:00] VITALS: BP 130/65
[2020-11-03 06:12] LABS: BASOPHILS # (AUTO) 0.1 X10'3 (0-0.2); BASOPHILS % (AUTO) 1.2 % (0-1); EOSINOPHILS # (AUTO) 0.3 X10'3 (0-0.9); EOSINOPHILS % (AUTO) 3.6 % (0-6); HEMATOCRIT 40.9 % (42.0-52.0); HEMOGLOBIN 13.6 g/dl (14.0-17.9); LYMPHOCYTES # (AUTO) 2.3 X10'3 (1.1-4.8); LYMPHOCYTES % (AUTO) 25.3 % (21-51); MEAN CORPUSCULAR HEMOGLOBIN 30.4 PG (27.0-31.0); MEAN CORPUSCULAR HGB CONC 33.3 g/dL (33.0-36.5); MEAN CORPUSCULAR VOLUME 91.3 FL (78-98); MONOCYTES # (AUTO) 1.5 X10'3 (0-0.9); MONOCYTES % (AUTO) 16.5 % (2-12); NEUTROPHILS # (AUTO) 4.8 X10'3 (1.8-7.7); NEUTROPHILS % (AUTO) 53.4 % (42-75); PLATELET COUNT 453 X10'3 (140-440); RED BLOOD COUNT 4.48 X10'6 (4.70-6.10); RED CELL DISTRIBUTION WIDTH 15.4 % (11.5-14.5)
--- NOTE | 2020-11-03 06:15 | NUR ---
received report from yusuf rosas
[2020-11-03 06:40] LABS: ALANINE AMINOTRANSFERASE 48 U/L (12-78); ALBUMIN 3.1 G/DL (3.4-5.0); ALBUMIN/GLOBULIN RATIO 0.7 (1.1-1.5); ANION GAP 11 (8-16); ASPARTATE AMINO TRANSFERASE 30 U/L (10-37); BILIRUBIN,TOTAL 0.2 MG/DL (0.1-1.0); BLOOD UREA NITROGEN 25 MG/DL (7-18); BUN/CREATININE RATIO 22.5 (5.4-32.0); CALCIUM 9.7 MG/DL (8.5-10.1); CHLORIDE 104 MMOL/L (99-107); CREATININE 1.11 MG/DL (0.60-1.10); GLUCOSE 93 MG/DL (70-104); POTASSIUM 4.5 MMOL/L (3.5-5.1); SODIUM 139 MMOL/L (135-145); TOTAL CARBON DIOXIDE 24.3 MMOL/L (24-32); TOTAL PROTEIN 7.7 G/DL (6.4-8.2); eGFR 70 ML/MIN
[2020-11-03 06:52] LABS: ALKALINE PHOSPHATASE 66 IU/L (46-116)
[2020-11-03] MEDS: multivitamins, therapeutics tablet PO SCH (07:43)
[2020-11-03] MEDS: folic acid 1mg tablet PO SCH (07:43)
[2020-11-03] MEDS: thiamine 100mg tablet PO SCH (07:43)
[2020-11-03] MEDS: lactobacillus rhamnosus 10,000 MMU CELLS/CAPSULE PO SCH ×2 (07:44→21:21)
[2020-11-03] MEDS: nicotine 21mg patch - 24 hr TD SCH (07:46)
[2020-11-03] MEDS: K and/or MAG REPLACEMENT MC SCH ×2 (07:47→20:00)
[2020-11-03 10:00] VITALS: BP 113/70
[2020-11-03 18:00] VITALS: BP 127/67
--- NOTE | 2020-11-03 18:30 | NUR ---
gave report to yusuf nathan
--- NOTE | 2020-11-03 18:56 | NUR ---
Patient in room ORTHO 4014. I have received report from Deisy KLEIN and had the opportunity to ask questions and assume patient care.
[2020-11-03] MEDS: enoxaparin 40mg/0.4ml syringe SQ SCH (21:21)
[2020-11-03 22:00] VITALS: BP 107/75
[2020-11-04] MEDS ORDERED: VANCOMYCIN LEVEL IV ONE (04:30)
[2020-11-04] MEDS: vancomycin/NS 1 GM ADD-VANTAGE 250 ML IV SCH ×2 (05:23→05:37)
[2020-11-04] MEDS: HYDROcodone/acetaminophen 10/325mg tab PO PRN ×2 (05:42→19:15)
[2020-11-04 06:00] VITALS: BP 100/73
--- NOTE | 2020-11-04 06:29 | NUR ---
Problems reprioritized. Patient report given, questions answered & plan of care reviewed with early shift RN.
--- NOTE | 2020-11-04 06:45 | NUR ---
Patient in room ORTHO 4014A. I have received report from ERNIE TOWNSEND and had the opportunity to ask questions and assume patient care.
[2020-11-04] MEDS: K and/or MAG REPLACEMENT MC SCH ×2 (08:00→20:00)
[2020-11-04] MEDS: nicotine 21mg patch - 24 hr TD SCH (08:00)
[2020-11-04 08:37] LABS: BASOPHILS # (AUTO) 0.1 X10'3 (0-0.2); BASOPHILS % (AUTO) 1.1 % (0-1); EOSINOPHILS # (AUTO) 0.3 X10'3 (0-0.9); EOSINOPHILS % (AUTO) 3.2 % (0-6); HEMOGLOBIN 14.3 g/dl (14.0-17.9); LYMPHOCYTES # (AUTO) 2.8 X10'3 (1.1-4.8); LYMPHOCYTES % (AUTO) 33.9 % (21-51); MEAN CORPUSCULAR HEMOGLOBIN 30.5 PG (27.0-31.0); MEAN CORPUSCULAR HGB CONC 33.2 g/dL (33.0-36.5); MEAN CORPUSCULAR VOLUME 91.8 FL (78-98); MEAN PLATELET VOLUME 6.9 FL (7.4-10.4); MONOCYTES # (AUTO) 1.3 X10'3 (0-0.9); MONOCYTES % (AUTO) 15.3 % (2-12); NEUTROPHILS # (AUTO) 3.9 X10'3 (1.8-7.7); NEUTROPHILS % (AUTO) 46.5 % (42-75); PLATELET COUNT 445 X10'3 (140-440); RED BLOOD COUNT 4.69 X10'6 (4.70-6.10); RED CELL DISTRIBUTION WIDTH 15.1 % (11.5-14.5); WHITE BLOOD COUNT 8.3 X10'3 (4.5-11.0)
[2020-11-04 08:44] LABS: ALBUMIN 3.3 G/DL (3.4-5.0); ANION GAP 10 (8-16); BLOOD UREA NITROGEN 24 MG/DL (7-18); BUN/CREATININE RATIO 21.4 (5.4-32.0); CALCIUM 10.2 MG/DL (8.5-10.1); CHLORIDE 104 MMOL/L (99-107); CREATININE 1.12 MG/DL (0.60-1.10); GLUCOSE 103 MG/DL (70-104); POTASSIUM 4.8 MMOL/L (3.5-5.1); SODIUM 141 MMOL/L (135-145); TOTAL CARBON DIOXIDE 26.7 MMOL/L (24-32); eGFR 69 ML/MIN
[2020-11-04 10:00] VITALS: BP 112/74
[2020-11-04] MEDS: thiamine 100mg tablet PO SCH (11:57)
[2020-11-04] MEDS: lactobacillus rhamnosus 10,000 MMU CELLS/CAPSULE PO SCH ×2 (11:57→19:15)
[2020-11-04] MEDS: folic acid 1mg tablet PO SCH (11:57)
[2020-11-04] MEDS: multivitamins, therapeutics tablet PO SCH (11:57)
[2020-11-04] MEDS: VANCOMYCIN 750MG IV in NS 250 ML IV SCH ×3 (11:57→23:44)
[2020-11-04 18:00] VITALS: BP 121/70
--- NOTE | 2020-11-04 18:45 | NUR ---
Problems reprioritized. Patient report given, questions answered & plan of care reviewed with ERNIE TOWNSEND.
[2020-11-04] MEDS: enoxaparin 40mg/0.4ml syringe SQ SCH (19:15)
[2020-11-04 22:00] VITALS: BP 119/74
[2020-11-05] MEDS: HYDROcodone/acetaminophen 10/325mg tab PO PRN ×4 (02:32→21:50)
[2020-11-05 06:00] VITALS: BP 100/73
--- NOTE | 2020-11-05 06:19 | NUR ---
Problems reprioritized. Patient report given, questions answered & plan of care reviewed with LUCY KLEIN.
[2020-11-05] MEDS ORDERED: VANCOMYCIN LEVEL IV ONE (07:30)
[2020-11-05 07:55] LABS: BASOPHILS # (AUTO) 0.1 X10'3 (0-0.2); BASOPHILS % (AUTO) 1.3 % (0-1); EOSINOPHILS # (AUTO) 0.3 X10'3 (0-0.9); EOSINOPHILS % (AUTO) 3.2 % (0-6); HEMATOCRIT 41.1 % (42.0-52.0); HEMOGLOBIN 13.6 g/dl (14.0-17.9); LYMPHOCYTES # (AUTO) 2.5 X10'3 (1.1-4.8); LYMPHOCYTES % (AUTO) 31.4 % (21-51); MEAN CORPUSCULAR HEMOGLOBIN 30.3 PG (27.0-31.0); MEAN CORPUSCULAR HGB CONC 33.1 g/dL (33.0-36.5); MEAN CORPUSCULAR VOLUME 91.5 FL (78-98); MEAN PLATELET VOLUME 7.1 FL (7.4-10.4); MONOCYTES # (AUTO) 1.5 X10'3 (0-0.9); MONOCYTES % (AUTO) 19.3 % (2-12); NEUTROPHILS # (AUTO) 3.6 X10'3 (1.8-7.7); NEUTROPHILS % (AUTO) 44.8 % (42-75); PLATELET COUNT 409 X10'3 (140-440); RED BLOOD COUNT 4.49 X10'6 (4.70-6.10); RED CELL DISTRIBUTION WIDTH 15.4 % (11.5-14.5)
[2020-11-05 07:57] LABS: ALBUMIN 3.3 G/DL (3.4-5.0); ANION GAP 13 (8-16); BLOOD UREA NITROGEN 20 MG/DL (7-18); BUN/CREATININE RATIO 20.2 (5.4-32.0); CALCIUM 9.8 MG/DL (8.5-10.1); CHLORIDE 104 MMOL/L (99-107); CREATININE 0.99 MG/DL (0.60-1.10); GLUCOSE 95 MG/DL (70-104); SODIUM 141 MMOL/L (135-145); TOTAL CARBON DIOXIDE 24.1 MMOL/L (24-32); eGFR 80 ML/MIN
[2020-11-05 08:00] LABS: VANCOMYCIN,TROUGH 21.4 UG/ML (6.0-14.0)
[2020-11-05] MEDS: K and/or MAG REPLACEMENT MC SCH ×2 (08:00→20:00)
[2020-11-05] MEDS: nicotine 21mg patch - 24 hr TD SCH (08:00)
--- NOTE | 2020-11-05 08:04 | NUR ---
CRITICAL TRANGO 21.4 CALLED PHARM AND , WILL HOLD FOR REDROCIO.
[2020-11-05 08:55] LABS: TOTAL CELLS COUNTED 100
[2020-11-05 08:56] LABS: PLATELET ESTIMATE NORMAL
[2020-11-05 10:00] VITALS: BP 111/73
[2020-11-05] MEDS: multivitamins, therapeutics tablet PO SCH (10:47)
[2020-11-05] MEDS: lactobacillus rhamnosus 10,000 MMU CELLS/CAPSULE PO SCH ×2 (10:47→20:44)
[2020-11-05] MEDS: thiamine 100mg tablet PO SCH (10:47)
[2020-11-05] MEDS: ESCITALOPRAM OXALATE 5 MG TABLET PO SCH (10:48)
[2020-11-05] MEDS: folic acid 1mg tablet PO SCH (10:48)
[2020-11-05] MEDS: vancomycin/NS 1 GM ADD-VANTAGE 250 ML IV SCH (17:16)
[2020-11-05 18:00] VITALS: BP 116/77
--- NOTE | 2020-11-05 18:06 | NUR ---
Problems reprioritized. Patient report given, questions answered & plan of care reviewed with ERNIE TOWNSEND.
--- NOTE | 2020-11-05 18:48 | NUR ---
Patient in room ORTHO 4014. I have received report from LUCY KLEIN and had the opportunity to ask questions and assume patient care.
[2020-11-05] MEDS: enoxaparin 40mg/0.4ml syringe SQ SCH (20:44)
[2020-11-05 22:00] VITALS: BP 107/63
[2020-11-06] MEDS: vancomycin/NS 1 GM ADD-VANTAGE 250 ML IV SCH (03:39)
[2020-11-06] MEDS: HYDROcodone/acetaminophen 10/325mg tab PO PRN ×2 (03:45→11:26)
[2020-11-06 06:00] VITALS: BP 100/61
[2020-11-06 06:29] LABS: BASOPHILS # (AUTO) 0.1 X10'3 (0-0.2); BASOPHILS % (AUTO) 1.3 % (0-1); EOSINOPHILS # (AUTO) 0.3 X10'3 (0-0.9); EOSINOPHILS % (AUTO) 3.5 % (0-6); HEMATOCRIT 38.7 % (42.0-52.0); HEMOGLOBIN 12.7 g/dl (14.0-17.9); LYMPHOCYTES # (AUTO) 1.9 X10'3 (1.1-4.8); LYMPHOCYTES % (AUTO) 24.3 % (21-51); MEAN CORPUSCULAR HGB CONC 32.9 g/dL (33.0-36.5); MEAN CORPUSCULAR VOLUME 91.1 FL (78-98); MEAN PLATELET VOLUME 7.4 FL (7.4-10.4); MONOCYTES # (AUTO) 1.6 X10'3 (0-0.9); MONOCYTES % (AUTO) 19.8 % (2-12); NEUTROPHILS % (AUTO) 51.1 % (42-75); PLATELET COUNT 359 X10'3 (140-440); RED BLOOD COUNT 4.24 X10'6 (4.70-6.10); RED CELL DISTRIBUTION WIDTH 14.8 % (11.5-14.5); WHITE BLOOD COUNT 7.9 X10'3 (4.5-11.0)
--- NOTE | 2020-11-06 06:43 | NUR ---
Problems reprioritized. Patient report given, questions answered & plan of care reviewed with YADI KLEIN.
[2020-11-06 06:49] LABS: ALBUMIN 2.9 G/DL (3.4-5.0); ANION GAP 10 (8-16); BLOOD UREA NITROGEN 19 MG/DL (7-18); CALCIUM 9.2 MG/DL (8.5-10.1); CHLORIDE 107 MMOL/L (99-107); GLUCOSE 87 MG/DL (70-104); POTASSIUM 4.1 MMOL/L (3.5-5.1); SODIUM 144 MMOL/L (135-145); TOTAL CARBON DIOXIDE 26.7 MMOL/L (24-32); eGFR 79 ML/MIN
--- NOTE | 2020-11-06 07:03 | NUR ---
Patient in room ORTHO 4014A. I have received report from ERNIE TOWNSEND and had the opportunity to ask questions and assume patient care.
[2020-11-06] MEDS: lactobacillus rhamnosus 10,000 MMU CELLS/CAPSULE PO SCH (07:17)
[2020-11-06] MEDS: folic acid 1mg tablet PO SCH (07:18)
[2020-11-06] MEDS: multivitamins, therapeutics tablet PO SCH (07:18)
[2020-11-06] MEDS: thiamine 100mg tablet PO SCH (07:19)
[2020-11-06] MEDS: ESCITALOPRAM OXALATE 5 MG TABLET PO SCH (07:19)
[2020-11-06] MEDS: nicotine 21mg patch - 24 hr TD SCH (07:20)
[2020-11-06] MEDS: K and/or MAG REPLACEMENT MC SCH (07:38)
[2020-11-06 10:59] VITALS: BP 111/73
[2020-11-06 11:00] VITALS: BP 104/70
--- NOTE | 2020-11-06 11:24 | NUR ---
acting as state tested nursing assistant, i reviewed student nurse charting
--- NOTE | 2020-11-06 15:25 | NUR ---
Patient left ama after risks of infection and not receiving full course of antibiotics. Patient explained to that antibiotics would be ready by tomorrow per case managers. Patient wanted to leave anyway. Patient left, Dr. Cohen pagejose. Picc removed.
--- NOTE | 2020-11-06 15:29 | NUR ---
MESSAGE SENT TO CASE MANAGEMENT... 3133A LB ANG
--- NOTE | 2020-11-06 15:41 | NUR ---
PICC REMOVED BY ERNIE GARRIDO, I WAS IN ROOM. ADVISED PT OF RISKS FROM LEAVING. PT GATHERED BELONGINGS. I WALKED PT DOWN TO EXIT THE BUILDING. Addendum: 11/06/20 at 1543 by Susan Villela RN AMShane PAPERWORK SIGNED BY PT
[2020-11-07] MEDS ORDERED: VANCOMYCIN LEVEL IV ONE (03:30)
== END 2020-11-06 15:24 | disposition left against medical advice (07) | DRG 313 ==
LOC: ER 12:07 → ED HOLD 16:40 → ORTHO 4S 19:05
PROVIDERS: ADMIT Family Medicine; ATTEND Family Medicine
PROC: 0S9D3ZZ Drainage of Left Knee Joint, Percutaneous Approach (ICD-10-PCS; 2020-10-26)
PROC: 0S9C3ZZ Drainage of Right Knee Joint, Percutaneous Approach (ICD-10-PCS; 2020-10-27)
PROC: 0S9D0ZZ Drainage of Left Knee Joint, Open Approach (ICD-10-PCS; principal; 2020-10-27 14:55)
PROC: 02HV33Z Insertion of Infusion Device into Superior Vena Cava, Percutaneous Approach (ICD-10-PCS; 2020-11-01)
PROC: B548ZZA Ultrasonography of Superior Vena Cava, Guidance (ICD-10-PCS; 2020-11-01)
DX: M00.9 Pyogenic arthritis, unspecified (principal); F12.90 Cannabis use, unspecified, uncomplicated; F15.10 Other stimulant abuse, uncomplicated; F17.210 Nicotine dependence, cigarettes, uncomplicated; Z53.29 Procedure and treatment not carried out because of patient's decision for other reasons; F32.9 Major depressive disorder, single episode, unspecified; Z20.822 Contact with and (suspected) exposure to COVID-19; E87.1 Hypo-osmolality and hyponatremia; N28.9 Disorder of kidney and ureter, unspecified; D64.9 Anemia, unspecified; Z96.652 Presence of left artificial knee joint; F10.10 Alcohol abuse, uncomplicated; F41.1 Generalized anxiety disorder; F43.10 Post-traumatic stress disorder, unspecified; G40.909 Epilepsy, unspecified, not intractable, without status epilepticus; R19.7 Diarrhea, unspecified; M25.461 Effusion, right knee; M25.562 Pain in left knee; M25.561 Pain in right knee; R26.2 Difficulty in walking, not elsewhere classified; Z59.0 Homelessness; Z79.899 Other long term (current) drug therapy; Z82.49 Family history of ischemic heart disease and other diseases of the circulatory system; Z71.6 Tobacco abuse counseling
CPT/HCPCS: 36415; 36573; 71045; 73564; 73700; 80048; 80053; 80202; 82150; 82948; 83690; 84100; 84145; 85007; 85025; 85610; 85651; 86140; 87070; 87075; 87081; 87635; 89051; 89060; 93005; 94760; 97110; 97116; 97161; 97530; 99285; A4215; A4618; A6449; A7000; G0378; J1100; J1650; J2001; J2250; J2405; J2543; J2704; J3010; J3370; J3411; J3490; J7030; J7050; J7120

== ENCOUNTER 2020-11-07 18:52 | Inpatient (IN) | payer MEDICAID ==
[~2020-11-07] VITALS: Ht 180.3 cm; Wt 86.4 kg
[~2020-11-07 18:52] MED LIST changes: -ALLO100T PO; -DIAZ5TAB PO; -DICL50TA8 PO; -HYDR-3965 PO; +NAPR-56 PO; -NICO-687 TD; -POTA10TA19 PO
[2020-11-07] MEDS ORDERED: vancomycin/NS 1 GM ADD-VANTAGE 250 ML IV ONE (20:15)
[2020-11-07 20:46] LABS: BASOPHILS # (AUTO) 0.1 X10'3 (0-0.2); BASOPHILS % (AUTO) 0.7 % (0-1); EOSINOPHILS # (AUTO) 0.1 X10'3 (0-0.9); EOSINOPHILS % (AUTO) 0.5 % (0-6); HEMATOCRIT 42.1 % (42.0-52.0); LYMPHOCYTES # (AUTO) 2.3 X10'3 (1.1-4.8); LYMPHOCYTES % (AUTO) 16.8 % (21-51); MEAN CORPUSCULAR HEMOGLOBIN 30.2 PG (27.0-31.0); MEAN CORPUSCULAR HGB CONC 33.2 g/dL (33.0-36.5); MEAN CORPUSCULAR VOLUME 90.8 FL (78-98); MONOCYTES # (AUTO) 0.7 X10'3 (0-0.9); MONOCYTES % (AUTO) 5.4 % (2-12); NEUTROPHILS # (AUTO) 10.3 X10'3 (1.8-7.7); NEUTROPHILS % (AUTO) 76.6 % (42-75); PLATELET COUNT 435 X10'3 (140-440); RED BLOOD COUNT 4.63 X10'6 (4.70-6.10); RED CELL DISTRIBUTION WIDTH 14.9 % (11.5-14.5); WHITE BLOOD COUNT 13.5 X10'3 (4.5-11.0)
[2020-11-07 21:01] LABS: ALANINE AMINOTRANSFERASE 50 U/L (12-78); ALBUMIN 3.8 G/DL (3.4-5.0); ALBUMIN/GLOBULIN RATIO 0.7 (1.1-1.5); ALKALINE PHOSPHATASE 90 IU/L (46-116); ANION GAP 14 (8-16); ASPARTATE AMINO TRANSFERASE 32 U/L (10-37); BILIRUBIN,TOTAL 0.2 MG/DL (0.1-1.0); BLOOD UREA NITROGEN 16 MG/DL (7-18); CALCIUM 10.2 MG/DL (8.5-10.1); CHLORIDE 101 MMOL/L (99-107); CREATININE 0.94 MG/DL (0.60-1.10); ETHANOL 0.164 GM/DL (0.0-0.010); GLUCOSE 93 MG/DL (70-104); MAGNESIUM 2.2 MG/DL (1.5-2.4); SODIUM 138 MMOL/L (135-145); TOTAL CARBON DIOXIDE 23.1 MMOL/L (24-32); TOTAL PROTEIN 8.9 G/DL (6.4-8.2); eGFR 85 ML/MIN
[2020-11-07 21:05] LABS: URINE AMPHETAMINE SCREEN NEGATIVE (Neg); URINE BARBITUATE SCREEN NEGATIVE (Neg); URINE BENZODIAZEPINES SCREEN NEGATIVE (Neg); URINE CANNABINOID SCREEN POSITIVE (Neg); URINE COCAINE SCREEN NEGATIVE (Neg); URINE METHADONE SCREEN NEGATIVE (Neg); URINE OPIATE SCREEN POSITIVE (Neg); URINE PHENCYCLIDINE SCREEN NEGATIVE (Neg)
[2020-11-07] MEDS ORDERED: morphine 2 MG/ML inj. syringe IV PRN ×2 (22:25)
[2020-11-07] MEDS ORDERED: potassium Cl 20 mEq SR tablet PO PRN ×2 (22:25)
[2020-11-07] MEDS ORDERED: HYDROcodone/acetaminophen 5mg/325mg tablet PO PRN (22:25)
[2020-11-07] MEDS ORDERED: ondansetron/PF 4mg/2ml inj IV PRN (22:25)
[2020-11-07] MEDS ORDERED: potassium Cl 40MEQ/1/2NS 520ml 520 ML IV PRN ×2 (22:25)
[2020-11-07] MEDS ORDERED: acetaminophen 325mg tablet PO PRN ×2 (22:25)
[2020-11-07] MEDS ORDERED: magnesium 4gm in 100ml NS 100 ML IV PRN (22:25)
[2020-11-07] MEDS ORDERED: magnesium 2GM in 50ml NS 50 ML IV PRN (22:25)
[2020-11-07] MEDS ORDERED: magnesium Cl slow-release 64mg tablet PO PRN (22:25)
[2020-11-07] MEDS ORDERED: LORazepam 2 mg/ml vial IV PRN (22:30)
[2020-11-07] MEDS ORDERED: LORazepam 1 MG tablet PO PRN (22:30)
[2020-11-07] MEDS: normal saline 1000ml 1,000 ML IV SCH (23:22)
--- NOTE | 2020-11-07 23:25 | NUR ---
PT REPORTS 8/10 KNEE PAIN. NO PAIN MEDS GIVEN SINCE ARRIVAL. NORCO 10 GIVEN PRN FOR PAIN ORDERED
[2020-11-07] MEDS: HYDROcodone/acetaminophen 10/325mg tab PO PRN (23:34)
[2020-11-08 02:31] LABS: BASOPHILS # (AUTO) 0.1 X10'3 (0-0.2); BASOPHILS % (AUTO) 1.2 % (0-1); EOSINOPHILS # (AUTO) 0.2 X10'3 (0-0.9); EOSINOPHILS % (AUTO) 1.9 % (0-6); HEMATOCRIT 36.9 % (42.0-52.0); HEMOGLOBIN 12.4 g/dl (14.0-17.9); LYMPHOCYTES # (AUTO) 2.9 X10'3 (1.1-4.8); LYMPHOCYTES % (AUTO) 35.5 % (21-51); MEAN CORPUSCULAR HEMOGLOBIN 30.3 PG (27.0-31.0); MEAN CORPUSCULAR HGB CONC 33.7 g/dL (33.0-36.5); MEAN CORPUSCULAR VOLUME 89.7 FL (78-98); MEAN PLATELET VOLUME 6.9 FL (7.4-10.4); MONOCYTES # (AUTO) 0.8 X10'3 (0-0.9); MONOCYTES % (AUTO) 10.1 % (2-12); NEUTROPHILS # (AUTO) 4.3 X10'3 (1.8-7.7); NEUTROPHILS % (AUTO) 51.3 % (42-75); PLATELET COUNT 377 X10'3 (140-440); RED BLOOD COUNT 4.11 X10'6 (4.70-6.10); RED CELL DISTRIBUTION WIDTH 15.1 % (11.5-14.5); WHITE BLOOD COUNT 8.3 X10'3 (4.5-11.0)
[2020-11-08 02:43] LABS: ALANINE AMINOTRANSFERASE 46 U/L (12-78); ALBUMIN 3.2 G/DL (3.4-5.0); ALBUMIN/GLOBULIN RATIO 0.7 (1.1-1.5); ALKALINE PHOSPHATASE 82 IU/L (46-116); ANION GAP 13 (8-16); ASPARTATE AMINO TRANSFERASE 25 U/L (10-37); BILIRUBIN,TOTAL 0.2 MG/DL (0.1-1.0); BLOOD UREA NITROGEN 14 MG/DL (7-18); BUN/CREATININE RATIO 15.1 (5.4-32.0); CALCIUM 9.3 MG/DL (8.5-10.1); CHLORIDE 106 MMOL/L (99-107); CREATININE 0.93 MG/DL (0.60-1.10); GLUCOSE 85 MG/DL (70-104); LIPASE 148 U/L (73-393); SODIUM 140 MMOL/L (135-145); TOTAL CARBON DIOXIDE 21.3 MMOL/L (24-32); TOTAL PROTEIN 7.5 G/DL (6.4-8.2); eGFR 86 ML/MIN
[2020-11-08] MEDS: heparin, porcine 5000 units/ml vial SQ SCH ×2 (07:52→21:10)
[2020-11-08] MEDS: folic acid 1mg tablet PO SCH (07:53)
[2020-11-08] MEDS: thiamine 100mg tablet PO SCH (07:53)
[2020-11-08] MEDS: docusate sod 100mg capsule PO SCH ×2 (07:53→21:10)
[2020-11-08] MEDS: multivitamins, therapeutics tablet PO SCH (07:53)
[2020-11-08] MEDS: K and/or MAG REPLACEMENT MC SCH ×2 (08:00→20:00)
[2020-11-08] MEDS: VANCOmycin 1250MG/NS 250ml Bag 250 ML IV SCH ×2 (08:42→21:04)
[2020-11-08] MEDS: normal saline 1000ml 1,000 ML IV SCH ×2 (08:45→19:22)
--- NOTE | 2020-11-08 09:48 | NUR ---
CASE MANAGEMENT AT BEDSIDE
[2020-11-08] MEDS ORDERED: NO HOME MEDS (11:11)
[2020-11-08] MEDS: lactobacillus rhamnosus 10,000 MMU CELLS/CAPSULE PO SCH (21:10)
[2020-11-08] MEDS: HYDROcodone/acetaminophen 10/325mg tab PO PRN (22:17)
[2020-11-09 02:49] LABS: ALANINE AMINOTRANSFERASE 42 U/L (12-78); ALBUMIN 2.9 G/DL (3.4-5.0); ALBUMIN/GLOBULIN RATIO 0.7 (1.1-1.5); ALKALINE PHOSPHATASE 76 IU/L (46-116); ANION GAP 9 (8-16); ASPARTATE AMINO TRANSFERASE 22 U/L (10-37); BILIRUBIN,TOTAL 0.2 MG/DL (0.1-1.0); BLOOD UREA NITROGEN 19 MG/DL (7-18); BUN/CREATININE RATIO 19.2 (5.4-32.0); CALCIUM 9.2 MG/DL (8.5-10.1); CHLORIDE 106 MMOL/L (99-107); CREATININE 0.99 MG/DL (0.60-1.10); EOSINOPHILS # (AUTO) 0.3 X10'3 (0-0.9); GLUCOSE 90 MG/DL (70-104); LIPASE 189 U/L (73-393); MAGNESIUM 1.9 MG/DL (1.5-2.4); MEAN PLATELET VOLUME 7.6 FL (7.4-10.4); POTASSIUM 3.6 MMOL/L (3.5-5.1); SODIUM 141 MMOL/L (135-145); TOTAL CARBON DIOXIDE 25.8 MMOL/L (24-32); TOTAL PROTEIN 6.9 G/DL (6.4-8.2); eGFR 80 ML/MIN
[2020-11-09 02:51] LABS: BASOPHILS # (AUTO) 0.2 X10'3 (0-0.2); EOSINOPHILS % (AUTO) 3.6 % (0-6); HEMATOCRIT 37.8 % (42.0-52.0); HEMOGLOBIN 12.6 g/dl (14.0-17.9); LYMPHOCYTES # (AUTO) 3.1 X10'3 (1.1-4.8); LYMPHOCYTES % (AUTO) 39.4 % (21-51); MEAN CORPUSCULAR HEMOGLOBIN 30.1 PG (27.0-31.0); MEAN CORPUSCULAR HGB CONC 33.3 g/dL (33.0-36.5); MEAN CORPUSCULAR VOLUME 90.1 FL (78-98); MONOCYTES % (AUTO) 13.1 % (2-12); NEUTROPHILS # (AUTO) 3.2 X10'3 (1.8-7.7); NEUTROPHILS % (AUTO) 40.9 % (42-75); PLATELET COUNT 376 X10'3 (140-440); RED BLOOD COUNT 4.19 X10'6 (4.70-6.10); RED CELL DISTRIBUTION WIDTH 14.9 % (11.5-14.5); WHITE BLOOD COUNT 7.8 X10'3 (4.5-11.0)
[2020-11-09] MEDS: normal saline 1000ml 1,000 ML IV SCH ×3 (04:25→22:39)
--- NOTE | 2020-11-09 05:37 | NUR ---
PT AMBULATED TO BATHROOM WITHOUT ASSISTANCE. STEADY GAIT OBSERVED
[2020-11-09] MEDS: HYDROcodone/acetaminophen 10/325mg tab PO PRN ×4 (05:44→22:37)
[2020-11-09] MEDS: K and/or MAG REPLACEMENT MC SCH ×2 (08:00→20:00)
[2020-11-09] MEDS: multivitamins, therapeutics tablet PO SCH (11:38)
[2020-11-09] MEDS: thiamine 100mg tablet PO SCH (11:38)
[2020-11-09] MEDS: lactobacillus rhamnosus 10,000 MMU CELLS/CAPSULE PO SCH ×2 (11:38→21:17)
[2020-11-09] MEDS: docusate sod 100mg capsule PO SCH ×2 (11:38→21:17)
[2020-11-09] MEDS: folic acid 1mg tablet PO SCH (11:38)
[2020-11-09] MEDS: VANCOmycin 1250MG/NS 250ml Bag 250 ML IV SCH ×2 (12:32→22:37)
[2020-11-09] MEDS: heparin, porcine 5000 units/ml vial SQ SCH ×2 (12:34→21:17)
[2020-11-09 12:40] VITALS: BP 123/84
[2020-11-09 18:00] VITALS: BP 118/79
--- NOTE | 2020-11-09 18:32 | NUR ---
Patient in room ORTHO 4014. I have received report from Francois KLEIN and had the opportunity to ask questions and assume patient care.
[2020-11-09] MEDS ORDERED: VANCOMYCIN LEVEL IV ONE (19:30)
[2020-11-09 22:00] VITALS: BP 100/61
[2020-11-10] MEDS: HYDROcodone/acetaminophen 10/325mg tab PO PRN ×5 (04:56→22:43)
[2020-11-10 06:00] VITALS: BP 109/64
--- NOTE | 2020-11-10 06:28 | NUR ---
Problems reprioritized. Patient report given, questions answered & plan of care reviewed with Megan KLEIN.
[2020-11-10 06:34] LABS: HEMOGLOBIN 12.4 g/dl (14.0-17.9)
[2020-11-10 06:38] LABS: HEMATOCRIT 36.7 % (42.0-52.0); MEAN CORPUSCULAR HEMOGLOBIN 30.3 PG (27.0-31.0); MEAN CORPUSCULAR HGB CONC 33.9 g/dL (33.0-36.5); MEAN CORPUSCULAR VOLUME 89.4 FL (78-98); MEAN PLATELET VOLUME 7.8 FL (7.4-10.4); PLATELET COUNT 358 X10'3 (140-440); RED BLOOD COUNT 4.11 X10'6 (4.70-6.10); RED CELL DISTRIBUTION WIDTH 15.1 % (11.5-14.5); WHITE BLOOD COUNT 6.3 X10'3 (4.5-11.0)
[2020-11-10 06:51] LABS: ALANINE AMINOTRANSFERASE 39 U/L (12-78); ALBUMIN 2.9 G/DL (3.4-5.0); ALBUMIN/GLOBULIN RATIO 0.7 (1.1-1.5); ALKALINE PHOSPHATASE 72 IU/L (46-116); ANION GAP 10 (8-16); ASPARTATE AMINO TRANSFERASE 24 U/L (10-37); BILIRUBIN,TOTAL 0.3 MG/DL (0.1-1.0); BLOOD UREA NITROGEN 18 MG/DL (7-18); BUN/CREATININE RATIO 18.4 (5.4-32.0); CALCIUM 9.2 MG/DL (8.5-10.1); CHLORIDE 107 MMOL/L (99-107); CREATININE 0.98 MG/DL (0.60-1.10); GLUCOSE 86 MG/DL (70-104); MAGNESIUM 1.9 MG/DL (1.5-2.4); POTASSIUM 4.3 MMOL/L (3.5-5.1); SODIUM 139 MMOL/L (135-145); TOTAL CARBON DIOXIDE 22.3 MMOL/L (24-32); TOTAL PROTEIN 6.9 G/DL (6.4-8.2); eGFR 81 ML/MIN
[2020-11-10 07:35] LABS: PLATELET ESTIMATE NORMAL; TOTAL CELLS COUNTED 100
[2020-11-10] MEDS: K and/or MAG REPLACEMENT MC SCH ×2 (08:00→19:37)
[2020-11-10] MEDS: docusate sod 100mg capsule PO SCH ×3 (08:00→19:37)
[2020-11-10] MEDS: VANCOmycin 1250MG/NS 250ml Bag 250 ML IV SCH ×2 (08:02→19:38)
[2020-11-10] MEDS: lactobacillus rhamnosus 10,000 MMU CELLS/CAPSULE PO SCH ×2 (08:03→19:37)
[2020-11-10] MEDS: folic acid 1mg tablet PO SCH (08:03)
[2020-11-10] MEDS: multivitamins, therapeutics tablet PO SCH (08:03)
[2020-11-10] MEDS: thiamine 100mg tablet PO SCH (08:03)
[2020-11-10] MEDS: heparin, porcine 5000 units/ml vial SQ SCH ×2 (08:04→19:37)
--- NOTE | 2020-11-10 09:46 | NUR ---
Initial: Pt admit for left knee septic arthritis s/p arthrotomy on 10/27 and acute alcohol intoxication. Pt on EtOH w/d protocol receiving routine Thiamine, Folic acid, and MVI. Pt on a regular diet documented with 100% PO intake throughout LOS meeting estimated nutrient needs. LBM 11/09, receiving routine bowel care. No nutrition intervention warranted at this time. Will continue to follow and make recommendations as appropriate. Recommendations: 1) Continue regular diet 2) Monitor need for additional protein for satiety 3) Continue routine Thiamine, Folic acid, and MVI for EtOH hx 4) Routine bowel care 5) Scaled weights per rx Addendum: 11/10/20 at [address] Amended: Links added.
[2020-11-10 10:00] VITALS: BP 124/81
[2020-11-10] MEDS: normal saline 1000ml 1,000 ML IV SCH ×2 (13:31→20:25)
[2020-11-10 18:00] VITALS: BP 110/65
--- NOTE | 2020-11-10 18:37 | NUR ---
Patient in room ORTHO 4014. I have received report from Megan KLEIN and had the opportunity to ask questions and assume patient care.
[2020-11-10 22:00] VITALS: BP 110/74
[2020-11-11] MEDS: HYDROcodone/acetaminophen 10/325mg tab PO PRN ×5 (02:54→23:39)
[2020-11-11] MEDS: normal saline 1000ml 1,000 ML IV SCH ×2 (02:55→15:01)
[2020-11-11 06:00] VITALS: BP 114/69
--- NOTE | 2020-11-11 06:24 | NUR ---
Problems reprioritized. Patient report given, questions answered & plan of care reviewed with Megan KLEIN.
[2020-11-11 07:04] LABS: HEMATOCRIT 38.1 % (42.0-52.0); HEMOGLOBIN 12.5 g/dl (14.0-17.9); MEAN CORPUSCULAR HEMOGLOBIN 29.7 PG (27.0-31.0); MEAN CORPUSCULAR HGB CONC 32.9 g/dL (33.0-36.5); MEAN CORPUSCULAR VOLUME 90.3 FL (78-98); MEAN PLATELET VOLUME 7.5 FL (7.4-10.4); PLATELET COUNT 400 X10'3 (140-440); RED BLOOD COUNT 4.22 X10'6 (4.70-6.10); WHITE BLOOD COUNT 6.3 X10'3 (4.5-11.0)
[2020-11-11 07:13] LABS: ALANINE AMINOTRANSFERASE 43 U/L (12-78); ALBUMIN 3.1 G/DL (3.4-5.0); ALBUMIN/GLOBULIN RATIO 0.8 (1.1-1.5); ALKALINE PHOSPHATASE 69 IU/L (46-116); ANION GAP 9 (8-16); ASPARTATE AMINO TRANSFERASE 25 U/L (10-37); BILIRUBIN,TOTAL 0.3 MG/DL (0.1-1.0); BLOOD UREA NITROGEN 16 MG/DL (7-18); BUN/CREATININE RATIO 16.3 (5.4-32.0); CALCIUM 9.4 MG/DL (8.5-10.1); CHLORIDE 107 MMOL/L (99-107); CREATININE 0.98 MG/DL (0.60-1.10); GLUCOSE 81 MG/DL (70-104); MAGNESIUM 1.8 MG/DL (1.5-2.4); POTASSIUM 4.1 MMOL/L (3.5-5.1); SODIUM 142 MMOL/L (135-145); TOTAL CARBON DIOXIDE 26.3 MMOL/L (24-32); eGFR 81 ML/MIN
[2020-11-11 07:52] LABS: PLATELET ESTIMATE NORMAL; TOTAL CELLS COUNTED 100
[2020-11-11] MEDS: K and/or MAG REPLACEMENT MC SCH ×2 (08:00→20:00)
[2020-11-11] MEDS: docusate sod 100mg capsule PO SCH ×2 (09:39→20:17)
[2020-11-11] MEDS: VANCOmycin 1250MG/NS 250ml Bag 250 ML IV SCH ×2 (09:39→20:18)
[2020-11-11] MEDS: folic acid 1mg tablet PO SCH (09:40)
[2020-11-11] MEDS: thiamine 100mg tablet PO SCH (09:40)
[2020-11-11] MEDS: multivitamins, therapeutics tablet PO SCH (09:40)
[2020-11-11] MEDS: heparin, porcine 5000 units/ml vial SQ SCH ×2 (09:40→20:17)
[2020-11-11] MEDS: lactobacillus rhamnosus 10,000 MMU CELLS/CAPSULE PO SCH ×2 (09:40→20:17)
[2020-11-11 10:00] VITALS: BP 105/56
[2020-11-11] MEDS: ESCITALOPRAM OXALATE 5 MG TABLET PO SCH (11:05)
[2020-11-11 18:00] VITALS: BP 111/69
--- NOTE | 2020-11-11 18:07 | NUR ---
Patient in room ORTHO 4014. I have received report from Megan KLEIN and had the opportunity to ask questions and assume patient care.
[2020-11-11 22:00] VITALS: BP 109/72
[2020-11-12] MEDS: normal saline 1000ml 1,000 ML IV SCH ×2 (02:38→15:20)
[2020-11-12] MEDS: HYDROcodone/acetaminophen 10/325mg tab PO PRN ×4 (05:21→19:56)
[2020-11-12 06:00] VITALS: BP 122/83
--- NOTE | 2020-11-12 06:00 | NUR ---
Problems reprioritized. Patient report given, questions answered & plan of care reviewed with Shelia KLEIN.
--- NOTE | 2020-11-12 06:20 | NUR ---
RECEIVED REPORT FROM ERNIE MONTES
[2020-11-12 06:40] LABS: BASOPHILS # (AUTO) 0.1 X10'3 (0-0.2); EOSINOPHILS # (AUTO) 0.3 X10'3 (0-0.9); EOSINOPHILS % (AUTO) 4.5 % (0-6); HEMATOCRIT 35.7 % (42.0-52.0); HEMOGLOBIN 12.1 g/dl (14.0-17.9); LYMPHOCYTES # (AUTO) 2.7 X10'3 (1.1-4.8); LYMPHOCYTES % (AUTO) 46.2 % (21-51); MEAN CORPUSCULAR HEMOGLOBIN 30.1 PG (27.0-31.0); MEAN CORPUSCULAR HGB CONC 33.8 g/dL (33.0-36.5); MEAN PLATELET VOLUME 7.5 FL (7.4-10.4); MONOCYTES # (AUTO) 0.8 X10'3 (0-0.9); MONOCYTES % (AUTO) 13.1 % (2-12); NEUTROPHILS % (AUTO) 34.2 % (42-75); PLATELET COUNT 369 X10'3 (140-440); RED BLOOD COUNT 4.01 X10'6 (4.70-6.10); RED CELL DISTRIBUTION WIDTH 14.6 % (11.5-14.5); WHITE BLOOD COUNT 5.8 X10'3 (4.5-11.0)
[2020-11-12 06:52] LABS: ALANINE AMINOTRANSFERASE 37 U/L (12-78); ALBUMIN/GLOBULIN RATIO 0.8 (1.1-1.5); ALKALINE PHOSPHATASE 66 IU/L (46-116); ANION GAP 7 (8-16); ASPARTATE AMINO TRANSFERASE 20 U/L (10-37); BILIRUBIN,TOTAL 0.3 MG/DL (0.1-1.0); BLOOD UREA NITROGEN 18 MG/DL (7-18); BUN/CREATININE RATIO 19.8 (5.4-32.0); CALCIUM 9.4 MG/DL (8.5-10.1); CHLORIDE 106 MMOL/L (99-107); CREATININE 0.91 MG/DL (0.60-1.10); GLUCOSE 87 MG/DL (70-104); MAGNESIUM 1.8 MG/DL (1.5-2.4); POTASSIUM 4.1 MMOL/L (3.5-5.1); SODIUM 140 MMOL/L (135-145); TOTAL CARBON DIOXIDE 27.2 MMOL/L (24-32); TOTAL PROTEIN 6.7 G/DL (6.4-8.2); eGFR 88 ML/MIN
[2020-11-12] MEDS: folic acid 1mg tablet PO SCH (07:07)
[2020-11-12] MEDS: lactobacillus rhamnosus 10,000 MMU CELLS/CAPSULE PO SCH ×2 (07:07→20:47)
[2020-11-12] MEDS: multivitamins, therapeutics tablet PO SCH (07:08)
[2020-11-12] MEDS: docusate sod 100mg capsule PO SCH ×2 (07:08→20:00)
[2020-11-12] MEDS: ESCITALOPRAM OXALATE 5 MG TABLET PO SCH (07:08)
[2020-11-12] MEDS: thiamine 100mg tablet PO SCH (07:08)
[2020-11-12] MEDS: VANCOmycin 1250MG/NS 250ml Bag 250 ML IV SCH ×2 (07:12→20:48)
[2020-11-12] MEDS: heparin, porcine 5000 units/ml vial SQ SCH ×2 (07:14→20:47)
[2020-11-12] MEDS: K and/or MAG REPLACEMENT MC SCH ×2 (07:19→20:00)
[2020-11-12 10:00] VITALS: BP 113/68
--- NOTE | 2020-11-12 14:11 | NUR ---
took out pt sutures on left knee per md orders, site christiana, scabed and cdi, continue to monitor
[2020-11-12 18:00] VITALS: BP 125/86
--- NOTE | 2020-11-12 18:18 | NUR ---
gave report to yusuf ayala
[2020-11-12 22:00] VITALS: BP 122/77
[2020-11-13] MEDS: normal saline 1000ml 1,000 ML IV SCH ×4 (01:06→19:40)
[2020-11-13] MEDS: HYDROcodone/acetaminophen 10/325mg tab PO PRN ×6 (01:06→21:15)
--- NOTE | 2020-11-13 06:39 | NUR ---
RECEIVED REPORT FROM JUAN KLEIN, INTRODUCED MYSELF TO PT AND UPDATED THE BOARD
[2020-11-13 07:52] VITALS: BP_SYST 117; BP_SYST 138; BP_DIAS 77; BP_DIAS 90
[2020-11-13] MEDS: docusate sod 100mg capsule PO SCH ×2 (08:00→20:00)
[2020-11-13] MEDS: K and/or MAG REPLACEMENT MC SCH ×2 (08:00→20:00)
[2020-11-13] MEDS: lactobacillus rhamnosus 10,000 MMU CELLS/CAPSULE PO SCH ×2 (08:16→19:33)
[2020-11-13] MEDS: folic acid 1mg tablet PO SCH (08:18)
[2020-11-13] MEDS: ESCITALOPRAM OXALATE 5 MG TABLET PO SCH (08:19)
[2020-11-13] MEDS: thiamine 100mg tablet PO SCH (08:19)
[2020-11-13] MEDS: multivitamins, therapeutics tablet PO SCH (08:20)
[2020-11-13] MEDS: heparin, porcine 5000 units/ml vial SQ SCH ×2 (08:23→19:34)
--- NOTE | 2020-11-13 08:36 | NUR ---
Barcode not scanning med into [employer], checked all meds prior to administration.
[2020-11-13] MEDS: VANCOmycin 1250MG/NS 250ml Bag 250 ML IV SCH ×2 (08:41→19:34)
[2020-11-13 08:43] LABS: EOSINOPHILS # (AUTO) 0.2 X10'3 (0-0.9); HEMOGLOBIN 12.9 g/dl (14.0-17.9); MONOCYTES # (AUTO) 0.7 X10'3 (0-0.9); NEUTROPHILS # (AUTO) 2.6 X10'3 (1.8-7.7); NEUTROPHILS % (AUTO) 45.7 % (42-75); WHITE BLOOD COUNT 5.7 X10'3 (4.5-11.0)
[2020-11-13 08:45] LABS: BASOPHILS # (AUTO) 0.1 X10'3 (0-0.2); BASOPHILS % (AUTO) 2.4 % (0-1); EOSINOPHILS % (AUTO) 4.4 % (0-6); HEMATOCRIT 38.8 % (42.0-52.0); LYMPHOCYTES % (AUTO) 34.8 % (21-51); MEAN CORPUSCULAR HEMOGLOBIN 30.1 PG (27.0-31.0); MEAN CORPUSCULAR HGB CONC 33.3 g/dL (33.0-36.5); MEAN CORPUSCULAR VOLUME 90.2 FL (78-98); MEAN PLATELET VOLUME 7.2 FL (7.4-10.4); MONOCYTES % (AUTO) 12.7 % (2-12); PLATELET COUNT 401 X10'3 (140-440); RED CELL DISTRIBUTION WIDTH 14.8 % (11.5-14.5)
[2020-11-13 08:56] LABS: ALANINE AMINOTRANSFERASE 38 U/L (12-78); ALBUMIN 3.2 G/DL (3.4-5.0); ALBUMIN/GLOBULIN RATIO 0.8 (1.1-1.5); ALKALINE PHOSPHATASE 72 IU/L (46-116); ANION GAP 10 (8-16); ASPARTATE AMINO TRANSFERASE 22 U/L (10-37); BILIRUBIN,TOTAL 0.3 MG/DL (0.1-1.0); BLOOD UREA NITROGEN 15 MG/DL (7-18); BUN/CREATININE RATIO 15.3 (5.4-32.0); CALCIUM 9.5 MG/DL (8.5-10.1); CHLORIDE 104 MMOL/L (99-107); CREATININE 0.98 MG/DL (0.60-1.10); GLUCOSE 93 MG/DL (70-104); SODIUM 141 MMOL/L (135-145); TOTAL CARBON DIOXIDE 27.2 MMOL/L (24-32); TOTAL PROTEIN 7.4 G/DL (6.4-8.2); eGFR 81 ML/MIN
[2020-11-13 10:34] VITALS: BP 119/71
--- NOTE | 2020-11-13 11:16 | NUR ---
acting as clinical instructor, I reviewed nursing director documentation
[2020-11-13 18:20] VITALS: BP 132/80
[2020-11-13 22:00] VITALS: BP 114/78
[2020-11-14] MEDS: HYDROcodone/acetaminophen 10/325mg tab PO PRN ×5 (01:43→23:28)
[2020-11-14] MEDS: normal saline 1000ml 1,000 ML IV SCH ×2 (05:50→08:18)
[2020-11-14 06:00] VITALS: BP 121/67
[2020-11-14 06:50] LABS: BASOPHILS # (AUTO) 0.1 X10'3 (0-0.2); EOSINOPHILS # (AUTO) 0.2 X10'3 (0-0.9); HEMOGLOBIN 12.2 g/dl (14.0-17.9); LYMPHOCYTES # (AUTO) 2.2 X10'3 (1.1-4.8); MEAN CORPUSCULAR HGB CONC 33.4 g/dL (33.0-36.5)
[2020-11-14 06:52] LABS: EOSINOPHILS % (AUTO) 4.4 % (0-6); HEMATOCRIT 36.3 % (42.0-52.0); LYMPHOCYTES % (AUTO) 40.5 % (21-51); MEAN CORPUSCULAR HEMOGLOBIN 30.3 PG (27.0-31.0); MEAN CORPUSCULAR VOLUME 90.6 FL (78-98); MEAN PLATELET VOLUME 7.6 FL (7.4-10.4); MONOCYTES # (AUTO) 0.7 X10'3 (0-0.9); MONOCYTES % (AUTO) 13.6 % (2-12); NEUTROPHILS # (AUTO) 2.1 X10'3 (1.8-7.7); NEUTROPHILS % (AUTO) 38.8 % (42-75); PLATELET COUNT 384 X10'3 (140-440); RED BLOOD COUNT 4.01 X10'6 (4.70-6.10); RED CELL DISTRIBUTION WIDTH 15.1 % (11.5-14.5); WHITE BLOOD COUNT 5.3 X10'3 (4.5-11.0)
[2020-11-14 06:56] LABS: BASOPHILS % (AUTO) 2.4 % (0-1)
[2020-11-14 07:09] LABS: ALANINE AMINOTRANSFERASE 38 U/L (12-78); ALBUMIN 3.3 G/DL (3.4-5.0); ALBUMIN/GLOBULIN RATIO 0.8 (1.1-1.5); ALKALINE PHOSPHATASE 71 IU/L (46-116); ANION GAP 9 (8-16); ASPARTATE AMINO TRANSFERASE 23 U/L (10-37); BILIRUBIN,TOTAL 0.3 MG/DL (0.1-1.0); BLOOD UREA NITROGEN 20 MG/DL (7-18); BUN/CREATININE RATIO 19.2 (5.4-32.0); CALCIUM 9.5 MG/DL (8.5-10.1); CHLORIDE 107 MMOL/L (99-107); CREATININE 1.04 MG/DL (0.60-1.10); GLUCOSE 84 MG/DL (70-104); MAGNESIUM 1.9 MG/DL (1.5-2.4); POTASSIUM 4.3 MMOL/L (3.5-5.1); SODIUM 142 MMOL/L (135-145); TOTAL CARBON DIOXIDE 25.9 MMOL/L (24-32); TOTAL PROTEIN 7.2 G/DL (6.4-8.2); eGFR 76 ML/MIN
[2020-11-14] MEDS: K and/or MAG REPLACEMENT MC SCH ×2 (08:00→20:00)
[2020-11-14] MEDS: thiamine 100mg tablet PO SCH (08:11)
[2020-11-14] MEDS: folic acid 1mg tablet PO SCH (08:11)
[2020-11-14] MEDS: heparin, porcine 5000 units/ml vial SQ SCH ×2 (08:11→19:12)
[2020-11-14] MEDS: ESCITALOPRAM OXALATE 5 MG TABLET PO SCH (08:11)
[2020-11-14] MEDS: lactobacillus rhamnosus 10,000 MMU CELLS/CAPSULE PO SCH ×2 (08:12→19:13)
[2020-11-14] MEDS: docusate sod 100mg capsule PO SCH ×2 (08:12→19:13)
[2020-11-14] MEDS: multivitamins, therapeutics tablet PO SCH (08:12)
[2020-11-14] MEDS: VANCOmycin 1250MG/NS 250ml Bag 250 ML IV SCH ×2 (08:18→19:13)
--- NOTE | 2020-11-14 09:40 | NUR ---
PAGER ID: [phone] MESSAGE: ERNIE ARANGO. PT had IV vancomycin infiltration on R forearm. small 1.5 inch tender/mound formed. IV D/C'ed, elevated with warm compress applied. Charge Nurse and Pharm notified. Would you like any further intervention?
[2020-11-14 10:00] VITALS: BP 117/74
--- NOTE | 2020-11-14 10:00 | NUR ---
Dr Shipman bedside assess IV site. directs warm compress and elevation until swelling subsides. No further instructions at this time.
--- NOTE | 2020-11-14 10:10 | NUR ---
PAGER ID: [phone] MESSAGE: Pt ERNIE Howard, Pt has order for PICC on 11/[address] Montilla, No consent found in chart. Pt would still like PICC, he will be on ABX until November 24. Do we still want PICC? can we TVO for consent? I can page PICC RN
--- NOTE | 2020-11-14 10:20 | NUR ---
PICC RN paged
--- NOTE | 2020-11-14 16:08 | NUR ---
YOANA RN NOTIFIED OF PICC LINE ORDER. WILL RESEARCH NEED TOMORROW PT IS NOT LEAVING TODAY. PIV PLACED FOR ANTIBIOTICS OVERNIGHT. Chanel BAEZ PICC RN
[2020-11-14 18:00] VITALS: BP 111/78
--- NOTE | 2020-11-14 18:23 | NUR ---
Patient in room ORTHO 4014. I have received report from ERNIE LEES and had the opportunity to ask questions and assume patient care.
[2020-11-14 22:00] VITALS: BP 122/71
[2020-11-15] MEDS: HYDROcodone/acetaminophen 10/325mg tab PO PRN ×3 (04:37→19:33)
[2020-11-15 06:00] VITALS: BP 116/67
--- NOTE | 2020-11-15 06:25 | NUR ---
Problems reprioritized. Patient report given, questions answered & plan of care reviewed with ERNIE LEES.
[2020-11-15] MEDS ORDERED: VANCOMYCIN LEVEL IV ONE (07:30)
[2020-11-15] MEDS: docusate sod 100mg capsule PO SCH ×2 (08:00→19:33)
[2020-11-15] MEDS: K and/or MAG REPLACEMENT MC SCH ×2 (08:00→19:19)
[2020-11-15 08:01] LABS: HEMOGLOBIN 13.1 g/dl (14.0-17.9); LYMPHOCYTES % (AUTO) 32.8 % (21-51); MONOCYTES # (AUTO) 0.8 X10'3 (0-0.9); NEUTROPHILS # (AUTO) 3.2 X10'3 (1.8-7.7)
[2020-11-15 08:05] LABS: BASOPHILS # (AUTO) 0.1 X10'3 (0-0.2); BASOPHILS % (AUTO) 1.9 % (0-1); EOSINOPHILS # (AUTO) 0.2 X10'3 (0-0.9); EOSINOPHILS % (AUTO) 3.5 % (0-6); HEMATOCRIT 39.7 % (42.0-52.0); LYMPHOCYTES # (AUTO) 2.1 X10'3 (1.1-4.8); MEAN CORPUSCULAR HGB CONC 33.1 g/dL (33.0-36.5); MEAN CORPUSCULAR VOLUME 90.5 FL (78-98); MEAN PLATELET VOLUME 7.3 FL (7.4-10.4); MONOCYTES % (AUTO) 12.7 % (2-12); NEUTROPHILS % (AUTO) 49.1 % (42-75); PLATELET COUNT 393 X10'3 (140-440); RED BLOOD COUNT 4.38 X10'6 (4.70-6.10); WHITE BLOOD COUNT 6.5 X10'3 (4.5-11.0)
[2020-11-15 08:16] LABS: ALANINE AMINOTRANSFERASE 38 U/L (12-78); ALBUMIN 3.7 G/DL (3.4-5.0); ALBUMIN/GLOBULIN RATIO 0.9 (1.1-1.5); ALKALINE PHOSPHATASE 75 IU/L (46-116); ASPARTATE AMINO TRANSFERASE 25 U/L (10-37); BILIRUBIN,TOTAL 0.4 MG/DL (0.1-1.0); BLOOD UREA NITROGEN 25 MG/DL (7-18); BUN/CREATININE RATIO 25.8 (5.4-32.0); CALCIUM 9.9 MG/DL (8.5-10.1); CREATININE 0.97 MG/DL (0.60-1.10); GLUCOSE 88 MG/DL (70-104); POTASSIUM 4.6 MMOL/L (3.5-5.1); SODIUM 136 MMOL/L (135-145); TOTAL CARBON DIOXIDE 24.5 MMOL/L (24-32); TOTAL PROTEIN 7.9 G/DL (6.4-8.2); VANCOMYCIN,TROUGH 15.4 UG/ML (6.0-14.0); eGFR 82 ML/MIN
[2020-11-15] MEDS: VANCOmycin 1250MG/NS 250ml Bag 250 ML IV SCH ×2 (08:19→19:33)
[2020-11-15] MEDS: ESCITALOPRAM OXALATE 5 MG TABLET PO SCH (08:19)
[2020-11-15] MEDS: lactobacillus rhamnosus 10,000 MMU CELLS/CAPSULE PO SCH ×2 (08:19→19:33)
[2020-11-15] MEDS: multivitamins, therapeutics tablet PO SCH (08:19)
[2020-11-15] MEDS: folic acid 1mg tablet PO SCH (08:19)
[2020-11-15] MEDS: heparin, porcine 5000 units/ml vial SQ SCH ×2 (08:20→19:34)
[2020-11-15] MEDS: thiamine 100mg tablet PO SCH (08:21)
[2020-11-15 08:23] LABS: ANION GAP 13 (8-16); CHLORIDE 99 MMOL/L (99-107)
[2020-11-15 10:00] VITALS: BP 99/61
[2020-11-15] MEDS: normal saline 1000ml 1,000 ML IV SCH ×2 (10:25→19:34)
--- NOTE | 2020-11-15 12:02 | NUR ---
Page PICC RN: Belinda [id number] Richard. ERNIE Oliva. Per Dr Brady Pt needs PICC or at least a midline placed. Thank you
--- NOTE | 2020-11-15 12:39 | NUR ---
Reassessment: Pt PO mostly 100% avg regular diet meeting needs. LBM 11/14 receiving routine colace. Remains on thiamin, folic, MVI for etoh. No nutrition concerns at this time. Will continue to monitor. Recommendations: 1) Continue regular diet 2) Continue routine Thiamine, Folic acid, and MVI for EtOH hx 3) Routine bowel care 4) Scaled wt this admit Addendum: 11/15/20 at [address] Amended: Links added.
--- NOTE | 2020-11-15 14:34 | NUR ---
PER DR POWELL, MIDLINE PLACEMENT OK, PT WILL NEED ANTIBIOTIC UNTIL 11/24/20. 5F DUAL LUMEN MIDLINE PLACED TO RIGHT BASILIC VEIN X'S 1 ATTEMPT WITH SUCCESS USING ULTRASOUND GUIDANCE. TIP ENDS MID-AXILLARY, BOTH LUMENS ASPIRATE BLOOD AND FLUSH WITHOUT DIFFICULTY. Chanel BAEZ PICC RN
[2020-11-15 18:00] VITALS: BP 128/80
--- NOTE | 2020-11-15 18:30 | NUR ---
Patient in room ORTHO 4014. I have received report from Pj KLEIN and had the opportunity to ask questions and assume patient care.
[2020-11-15 21:30] VITALS: BP 100/60
[2020-11-16] MEDS: HYDROcodone/acetaminophen 10/325mg tab PO PRN ×4 (01:04→19:56)
[2020-11-16] MEDS: normal saline 1000ml 1,000 ML IV SCH (05:30)
[2020-11-16 06:00] VITALS: BP 111/66
--- NOTE | 2020-11-16 06:13 | NUR ---
Problems reprioritized. Patient report given, questions answered & plan of care reviewed with Pj KLEIN.
[2020-11-16 06:16] LABS: BASOPHILS # (AUTO) 0.1 X10'3 (0-0.2); BASOPHILS % (AUTO) 1.8 % (0-1); EOSINOPHILS # (AUTO) 0.2 X10'3 (0-0.9); EOSINOPHILS % (AUTO) 3.9 % (0-6); HEMATOCRIT 38.3 % (42.0-52.0); HEMOGLOBIN 12.8 g/dl (14.0-17.9); LYMPHOCYTES # (AUTO) 2.1 X10'3 (1.1-4.8); LYMPHOCYTES % (AUTO) 37.8 % (21-51); MEAN CORPUSCULAR HEMOGLOBIN 30.1 PG (27.0-31.0); MEAN CORPUSCULAR HGB CONC 33.5 g/dL (33.0-36.5); MEAN CORPUSCULAR VOLUME 89.7 FL (78-98); MEAN PLATELET VOLUME 7.6 FL (7.4-10.4); MONOCYTES # (AUTO) 0.7 X10'3 (0-0.9); NEUTROPHILS # (AUTO) 2.5 X10'3 (1.8-7.7); NEUTROPHILS % (AUTO) 44.5 % (42-75); PLATELET COUNT 345 X10'3 (140-440); RED BLOOD COUNT 4.27 X10'6 (4.70-6.10); RED CELL DISTRIBUTION WIDTH 14.9 % (11.5-14.5); WHITE BLOOD COUNT 5.7 X10'3 (4.5-11.0)
[2020-11-16 06:44] LABS: ALANINE AMINOTRANSFERASE 40 U/L (12-78); ALBUMIN 3.4 G/DL (3.4-5.0); ALBUMIN/GLOBULIN RATIO 0.8 (1.1-1.5); ALKALINE PHOSPHATASE 75 IU/L (46-116); ANION GAP 10 (8-16); ASPARTATE AMINO TRANSFERASE 23 U/L (10-37); BILIRUBIN,TOTAL 0.3 MG/DL (0.1-1.0); BLOOD UREA NITROGEN 22 MG/DL (7-18); BUN/CREATININE RATIO 22.7 (5.4-32.0); CALCIUM 9.7 MG/DL (8.5-10.1); CHLORIDE 107 MMOL/L (99-107); CREATININE 0.97 MG/DL (0.60-1.10); GLUCOSE 87 MG/DL (70-104); POTASSIUM 4.5 MMOL/L (3.5-5.1); SODIUM 142 MMOL/L (135-145); TOTAL CARBON DIOXIDE 25.5 MMOL/L (24-32); TOTAL PROTEIN 7.6 G/DL (6.4-8.2); eGFR 82 ML/MIN
[2020-11-16] MEDS: docusate sod 100mg capsule PO SCH ×2 (08:00→19:55)
[2020-11-16] MEDS: ESCITALOPRAM OXALATE 5 MG TABLET PO SCH (08:21)
[2020-11-16] MEDS: thiamine 100mg tablet PO SCH (08:21)
[2020-11-16] MEDS: folic acid 1mg tablet PO SCH (08:21)
[2020-11-16] MEDS: multivitamins, therapeutics tablet PO SCH (08:21)
[2020-11-16] MEDS: heparin, porcine 5000 units/ml vial SQ SCH ×2 (08:21→19:57)
[2020-11-16] MEDS: lactobacillus rhamnosus 10,000 MMU CELLS/CAPSULE PO SCH ×2 (08:21→19:56)
[2020-11-16] MEDS: VANCOmycin 1250MG/NS 250ml Bag 250 ML IV SCH ×2 (08:23→19:57)
[2020-11-16] MEDS: K and/or MAG REPLACEMENT MC SCH ×2 (08:24→19:48)
[2020-11-16 10:00] VITALS: BP 112/76
[2020-11-16 18:00] VITALS: BP 119/74
--- NOTE | 2020-11-16 19:22 | NUR ---
Patient in room ORTHO 4014. I have received report from Pj KLEIN and had the opportunity to ask questions and assume patient care.
[2020-11-16 22:00] VITALS: BP 123/77
[2020-11-17] MEDS: HYDROcodone/acetaminophen 10/325mg tab PO PRN ×6 (01:06→22:37)
[2020-11-17 05:30] VITALS: BP 112/70
--- NOTE | 2020-11-17 06:05 | NUR ---
Patient in room ORTHO 4014. I have received report from ERNIE Lozano and had the opportunity to ask questions and assume patient care.
--- NOTE | 2020-11-17 06:34 | NUR ---
Problems reprioritized. Patient report given, questions answered & plan of care reviewed with Alana RN.
[2020-11-17 07:08] LABS: BASOPHILS # (AUTO) 0.1 X10'3 (0-0.2); BASOPHILS % (AUTO) 1.4 % (0-1); EOSINOPHILS # (AUTO) 0.3 X10'3 (0-0.9); EOSINOPHILS % (AUTO) 4.8 % (0-6); HEMATOCRIT 37.9 % (42.0-52.0); HEMOGLOBIN 12.6 g/dl (14.0-17.9); LYMPHOCYTES # (AUTO) 2.5 X10'3 (1.1-4.8); LYMPHOCYTES % (AUTO) 47.7 % (21-51); MEAN CORPUSCULAR HEMOGLOBIN 29.9 PG (27.0-31.0); MEAN CORPUSCULAR HGB CONC 33.4 g/dL (33.0-36.5); MEAN CORPUSCULAR VOLUME 89.6 FL (78-98); MEAN PLATELET VOLUME 8.2 FL (7.4-10.4); MONOCYTES # (AUTO) 0.7 X10'3 (0-0.9); MONOCYTES % (AUTO) 12.5 % (2-12); NEUTROPHILS # (AUTO) 1.8 X10'3 (1.8-7.7); NEUTROPHILS % (AUTO) 33.6 % (42-75); PLATELET COUNT 343 X10'3 (140-440); RED BLOOD COUNT 4.23 X10'6 (4.70-6.10); RED CELL DISTRIBUTION WIDTH 15.1 % (11.5-14.5); WHITE BLOOD COUNT 5.3 X10'3 (4.5-11.0)
[2020-11-17 07:27] LABS: ALANINE AMINOTRANSFERASE 39 U/L (12-78); ALBUMIN 3.5 G/DL (3.4-5.0); ALBUMIN/GLOBULIN RATIO 0.9 (1.1-1.5); ALKALINE PHOSPHATASE 73 IU/L (46-116); ANION GAP 11 (8-16); ASPARTATE AMINO TRANSFERASE 25 U/L (10-37); BILIRUBIN,TOTAL 0.5 MG/DL (0.1-1.0); BLOOD UREA NITROGEN 24 MG/DL (7-18); C-REACTIVE PROTEIN 1.21 MG/DL (0.0-0.5); CALCIUM 9.8 MG/DL (8.5-10.1); CHLORIDE 106 MMOL/L (99-107); GLUCOSE 79 MG/DL (70-104); POTASSIUM 4.1 MMOL/L (3.5-5.1); SODIUM 142 MMOL/L (135-145); TOTAL CARBON DIOXIDE 25.4 MMOL/L (24-32); TOTAL PROTEIN 7.6 G/DL (6.4-8.2); eGFR 79 ML/MIN
[2020-11-17] MEDS: K and/or MAG REPLACEMENT MC SCH ×2 (07:34→20:00)
[2020-11-17] MEDS: VANCOmycin 1250MG/NS 250ml Bag 250 ML IV SCH ×3 (09:24→20:04)
[2020-11-17] MEDS: lactobacillus rhamnosus 10,000 MMU CELLS/CAPSULE PO SCH ×2 (09:25→19:59)
[2020-11-17] MEDS: multivitamins, therapeutics tablet PO SCH (09:25)
[2020-11-17] MEDS: docusate sod 100mg capsule PO SCH ×2 (09:25→19:59)
[2020-11-17] MEDS: thiamine 100mg tablet PO SCH (09:25)
[2020-11-17] MEDS: ESCITALOPRAM OXALATE 5 MG TABLET PO SCH (09:25)
[2020-11-17] MEDS: heparin, porcine 5000 units/ml vial SQ SCH ×2 (09:26→20:00)
[2020-11-17] MEDS: folic acid 1mg tablet PO SCH (09:28)
[2020-11-17 10:00] VITALS: BP 112/69
[2020-11-17 18:00] VITALS: BP 115/76
--- NOTE | 2020-11-17 18:05 | NUR ---
Problems reprioritized. Patient report given, questions answered & plan of care reviewed with ERNIE Ramírez.
--- NOTE | 2020-11-17 18:45 | NUR ---
Patient in room ORTHO 4014. I have received report from Alana KLEIN and had the opportunity to ask questions and assume patient care.
--- NOTE | 2020-11-17 22:27 | NUR ---
Problems reprioritized. Patient report given, questions answered & plan of care reviewed with YADI KLEIN.
--- NOTE | 2020-11-17 22:30 | NUR ---
Report from Desiree KLEIN
[2020-11-17] MEDS: temazepam 15mg capsule PO PRN (22:37)
[2020-11-18 06:00] VITALS: BP 115/75
[2020-11-18 06:42] LABS: BASOPHILS # (AUTO) 0.1 X10'3 (0-0.2); BASOPHILS % (AUTO) 1.8 % (0-1); EOSINOPHILS # (AUTO) 0.2 X10'3 (0-0.9); EOSINOPHILS % (AUTO) 4.2 % (0-6); HEMOGLOBIN 12.7 g/dl (14.0-17.9); LYMPHOCYTES # (AUTO) 2.2 X10'3 (1.1-4.8); MEAN CORPUSCULAR HEMOGLOBIN 29.7 PG (27.0-31.0); MEAN CORPUSCULAR HGB CONC 33.3 g/dL (33.0-36.5); MEAN CORPUSCULAR VOLUME 89.1 FL (78-98); MEAN PLATELET VOLUME 7.8 FL (7.4-10.4); MONOCYTES # (AUTO) 0.6 X10'3 (0-0.9); MONOCYTES % (AUTO) 10.8 % (2-12); NEUTROPHILS # (AUTO) 2.4 X10'3 (1.8-7.7); NEUTROPHILS % (AUTO) 43.2 % (42-75); PLATELET COUNT 317 X10'3 (140-440); RED BLOOD COUNT 4.27 X10'6 (4.70-6.10); RED CELL DISTRIBUTION WIDTH 14.9 % (11.5-14.5); WHITE BLOOD COUNT 5.5 X10'3 (4.5-11.0)
[2020-11-18 06:57] LABS: ALANINE AMINOTRANSFERASE 44 U/L (12-78); ALBUMIN 3.6 G/DL (3.4-5.0); ALBUMIN/GLOBULIN RATIO 0.9 (1.1-1.5); ALKALINE PHOSPHATASE 74 IU/L (46-116); ANION GAP 14 (8-16); ASPARTATE AMINO TRANSFERASE 28 U/L (10-37); BILIRUBIN,TOTAL 0.4 MG/DL (0.1-1.0); BLOOD UREA NITROGEN 26 MG/DL (7-18); CALCIUM 9.8 MG/DL (8.5-10.1); CHLORIDE 105 MMOL/L (99-107); GLUCOSE 85 MG/DL (70-104); SODIUM 143 MMOL/L (135-145); TOTAL CARBON DIOXIDE 24.2 MMOL/L (24-32); TOTAL PROTEIN 7.5 G/DL (6.4-8.2); eGFR 79 ML/MIN
[2020-11-18] MEDS: VANCOmycin 1250MG/NS 250ml Bag 250 ML IV SCH ×2 (07:38→19:43)
[2020-11-18] MEDS: multivitamins, therapeutics tablet PO SCH (07:39)
[2020-11-18] MEDS: heparin, porcine 5000 units/ml vial SQ SCH ×2 (07:39→19:42)
[2020-11-18] MEDS: ESCITALOPRAM OXALATE 5 MG TABLET PO SCH (07:39)
[2020-11-18] MEDS: lactobacillus rhamnosus 10,000 MMU CELLS/CAPSULE PO SCH ×2 (07:39→19:42)
[2020-11-18] MEDS: thiamine 100mg tablet PO SCH (07:39)
[2020-11-18] MEDS: folic acid 1mg tablet PO SCH (07:39)
[2020-11-18] MEDS: docusate sod 100mg capsule PO SCH ×2 (07:39→19:52)
[2020-11-18] MEDS: HYDROcodone/acetaminophen 10/325mg tab PO PRN ×3 (07:39→19:42)
[2020-11-18 10:00] VITALS: BP 108/61
[2020-11-18] MEDS: K and/or MAG REPLACEMENT MC SCH ×2 (13:25→19:52)
[2020-11-18 18:00] VITALS: BP 96/59
[2020-11-18 22:00] VITALS: BP 117/65
[2020-11-19] MEDS: HYDROcodone/acetaminophen 10/325mg tab PO PRN ×4 (05:42→20:31)
--- NOTE | 2020-11-19 06:03 | NUR ---
Problems reprioritized. Patient report given, questions answered & plan of care reviewed with ERNIE Morocho.
--- NOTE | 2020-11-19 06:05 | NUR ---
Patient in room ORTHO 4015. I have received report from Fiona KLEIN and had the opportunity to ask questions and assume patient care.
[2020-11-19 06:51] VITALS: BP 123/80
[2020-11-19] MEDS: heparin, porcine 5000 units/ml vial SQ SCH ×2 (07:58→20:28)
[2020-11-19] MEDS: docusate sod 100mg capsule PO SCH ×2 (07:59→20:27)
[2020-11-19] MEDS: thiamine 100mg tablet PO SCH (07:59)
[2020-11-19] MEDS: VANCOmycin 1250MG/NS 250ml Bag 250 ML IV SCH ×2 (07:59→20:27)
[2020-11-19] MEDS: lactobacillus rhamnosus 10,000 MMU CELLS/CAPSULE PO SCH ×2 (07:59→20:27)
[2020-11-19] MEDS: ESCITALOPRAM OXALATE 5 MG TABLET PO SCH (07:59)
[2020-11-19] MEDS: folic acid 1mg tablet PO SCH (08:00)
[2020-11-19] MEDS: K and/or MAG REPLACEMENT MC SCH ×2 (08:00→20:00)
[2020-11-19] MEDS: multivitamins, therapeutics tablet PO SCH (08:00)
--- NOTE | 2020-11-19 09:05 | NUR ---
Called lab to notify them of midline not drawing as AM labs are ordered this morning. Assembler [employer] to come up and draw labs.
[2020-11-19 10:30] LABS: BASOPHILS # (AUTO) 0.1 X10'3 (0-0.2); BASOPHILS % (AUTO) 1.5 % (0-1); EOSINOPHILS # (AUTO) 0.2 X10'3 (0-0.9); EOSINOPHILS % (AUTO) 3.9 % (0-6); HEMATOCRIT 38.5 % (42.0-52.0); HEMOGLOBIN 12.9 g/dl (14.0-17.9); LYMPHOCYTES # (AUTO) 2.5 X10'3 (1.1-4.8); LYMPHOCYTES % (AUTO) 42.9 % (21-51); MEAN CORPUSCULAR HEMOGLOBIN 30.2 PG (27.0-31.0); MEAN CORPUSCULAR HGB CONC 33.4 g/dL (33.0-36.5); MEAN CORPUSCULAR VOLUME 90.4 FL (78-98); MEAN PLATELET VOLUME 7.5 FL (7.4-10.4); MONOCYTES # (AUTO) 0.8 X10'3 (0-0.9); MONOCYTES % (AUTO) 14.4 % (2-12); NEUTROPHILS # (AUTO) 2.2 X10'3 (1.8-7.7); NEUTROPHILS % (AUTO) 37.3 % (42-75); PLATELET COUNT 330 X10'3 (140-440); RED BLOOD COUNT 4.26 X10'6 (4.70-6.10); RED CELL DISTRIBUTION WIDTH 14.8 % (11.5-14.5); WHITE BLOOD COUNT 5.9 X10'3 (4.5-11.0)
[2020-11-19 10:49] LABS: ALANINE AMINOTRANSFERASE 44 U/L (12-78); ALBUMIN 3.6 G/DL (3.4-5.0); ALBUMIN/GLOBULIN RATIO 0.9 (1.1-1.5); ALKALINE PHOSPHATASE 75 IU/L (46-116); ANION GAP 13 (8-16); ASPARTATE AMINO TRANSFERASE 28 U/L (10-37); BILIRUBIN,TOTAL 0.3 MG/DL (0.1-1.0); BLOOD UREA NITROGEN 24 MG/DL (7-18); BUN/CREATININE RATIO 24.7 (5.4-32.0); CALCIUM 9.8 MG/DL (8.5-10.1); CHLORIDE 103 MMOL/L (99-107); CREATININE 0.97 MG/DL (0.60-1.10); GLUCOSE 90 MG/DL (70-104); POTASSIUM 4.6 MMOL/L (3.5-5.1); SODIUM 141 MMOL/L (135-145); TOTAL CARBON DIOXIDE 25.4 MMOL/L (24-32); TOTAL PROTEIN 7.7 G/DL (6.4-8.2); eGFR 82 ML/MIN
[2020-11-19 11:27] VITALS: BP 116/75
[2020-11-19 17:19] VITALS: BP 124/70
--- NOTE | 2020-11-19 18:15 | NUR ---
Problems reprioritized. Patient report given, questions answered & plan of care reviewed with Desiree KLEIN.
[2020-11-19 22:00] VITALS: BP 101/52
[2020-11-20] MEDS: HYDROcodone/acetaminophen 10/325mg tab PO PRN ×5 (05:06→20:50)
--- NOTE | 2020-11-20 06:15 | NUR ---
Patient in room ORTHO 4015. I have received report from Desiree KLEIN and had the opportunity to ask questions and assume patient care.
[2020-11-20 06:17] VITALS: BP 126/77
[2020-11-20 06:30] LABS: BASOPHILS # (AUTO) 0.1 X10'3 (0-0.2); BASOPHILS % (AUTO) 1.4 % (0-1); EOSINOPHILS # (AUTO) 0.3 X10'3 (0-0.9); EOSINOPHILS % (AUTO) 4.8 % (0-6); HEMATOCRIT 37.4 % (42.0-52.0); HEMOGLOBIN 12.7 g/dl (14.0-17.9); LYMPHOCYTES % (AUTO) 38.1 % (21-51); MEAN CORPUSCULAR HEMOGLOBIN 30.3 PG (27.0-31.0); MEAN CORPUSCULAR VOLUME 89.2 FL (78-98); MEAN PLATELET VOLUME 7.9 FL (7.4-10.4); MONOCYTES # (AUTO) 0.8 X10'3 (0-0.9); MONOCYTES % (AUTO) 15.1 % (2-12); NEUTROPHILS # (AUTO) 2.1 X10'3 (1.8-7.7); NEUTROPHILS % (AUTO) 40.6 % (42-75); PLATELET COUNT 305 X10'3 (140-440); RED BLOOD COUNT 4.19 X10'6 (4.70-6.10); RED CELL DISTRIBUTION WIDTH 14.7 % (11.5-14.5); WHITE BLOOD COUNT 5.2 X10'3 (4.5-11.0)
[2020-11-20 07:05] LABS: ALANINE AMINOTRANSFERASE 45 U/L (12-78); ALBUMIN 3.6 G/DL (3.4-5.0); ALBUMIN/GLOBULIN RATIO 0.9 (1.1-1.5); ALKALINE PHOSPHATASE 74 IU/L (46-116); ANION GAP 13 (8-16); ASPARTATE AMINO TRANSFERASE 29 U/L (10-37); BILIRUBIN,TOTAL 0.4 MG/DL (0.1-1.0); BLOOD UREA NITROGEN 24 MG/DL (7-18); BUN/CREATININE RATIO 22.2 (5.4-32.0); CALCIUM 9.8 MG/DL (8.5-10.1); CHLORIDE 106 MMOL/L (99-107); CREATININE 1.08 MG/DL (0.60-1.10); GLUCOSE 93 MG/DL (70-104); POTASSIUM 4.4 MMOL/L (3.5-5.1); SODIUM 143 MMOL/L (135-145); TOTAL CARBON DIOXIDE 24.3 MMOL/L (24-32); TOTAL PROTEIN 7.5 G/DL (6.4-8.2); eGFR 72 ML/MIN
[2020-11-20] MEDS: ESCITALOPRAM OXALATE 5 MG TABLET PO SCH (07:30)
[2020-11-20] MEDS: folic acid 1mg tablet PO SCH (07:30)
[2020-11-20] MEDS: multivitamins, therapeutics tablet PO SCH (07:30)
[2020-11-20] MEDS: thiamine 100mg tablet PO SCH (07:30)
[2020-11-20] MEDS: docusate sod 100mg capsule PO SCH ×2 (07:30→20:49)
[2020-11-20] MEDS: lactobacillus rhamnosus 10,000 MMU CELLS/CAPSULE PO SCH ×2 (07:30→20:49)
[2020-11-20] MEDS: VANCOmycin 1250MG/NS 250ml Bag 250 ML IV SCH ×2 (07:31→20:49)
[2020-11-20] MEDS: heparin, porcine 5000 units/ml vial SQ SCH ×2 (07:31→20:49)
[2020-11-20 07:57] LABS: TOTAL CELLS COUNTED 100
[2020-11-20 07:58] LABS: PLATELET ESTIMATE NORMAL
[2020-11-20] MEDS: K and/or MAG REPLACEMENT MC SCH ×2 (08:00→20:00)
[2020-11-20 09:43] VITALS: BP 110/81
[2020-11-20 18:00] VITALS: BP 125/80
--- NOTE | 2020-11-20 18:21 | NUR ---
Problems reprioritized. Patient report given, questions answered & plan of care reviewed with Zoila KLEIN.
--- NOTE | 2020-11-20 18:30 | NUR ---
Report from Bailee KLEIN
[2020-11-20] MEDS: temazepam 15mg capsule PO PRN (20:50)
[2020-11-20 22:00] VITALS: BP 109/68
[2020-11-21 06:00] VITALS: BP 112/65
--- NOTE | 2020-11-21 06:01 | NUR ---
Report to Shelia KLEIN
--- NOTE | 2020-11-21 06:05 | NUR ---
received report from yusuf guzman
[2020-11-21] MEDS: K and/or MAG REPLACEMENT MC SCH ×2 (07:08→19:27)
[2020-11-21] MEDS: lactobacillus rhamnosus 10,000 MMU CELLS/CAPSULE PO SCH ×2 (07:14→19:26)
[2020-11-21] MEDS: docusate sod 100mg capsule PO SCH ×2 (07:14→19:26)
[2020-11-21] MEDS: folic acid 1mg tablet PO SCH (07:15)
[2020-11-21] MEDS: multivitamins, therapeutics tablet PO SCH (07:15)
[2020-11-21] MEDS: thiamine 100mg tablet PO SCH (07:15)
[2020-11-21] MEDS: ESCITALOPRAM OXALATE 5 MG TABLET PO SCH (07:15)
[2020-11-21] MEDS: heparin, porcine 5000 units/ml vial SQ SCH ×2 (07:16→19:26)
[2020-11-21] MEDS: VANCOmycin 1250MG/NS 250ml Bag 250 ML IV SCH ×2 (07:18→19:26)
[2020-11-21] MEDS ORDERED: VANCOMYCIN LEVEL IV ONE (07:30)
[2020-11-21 07:49] LABS: BASOPHILS # (AUTO) 0.1 X10'3 (0-0.2); BASOPHILS % (AUTO) 1.8 % (0-1); EOSINOPHILS # (AUTO) 0.3 X10'3 (0-0.9); EOSINOPHILS % (AUTO) 5.8 % (0-6); HEMOGLOBIN 12.6 g/dl (14.0-17.9); LYMPHOCYTES # (AUTO) 2.2 X10'3 (1.1-4.8); LYMPHOCYTES % (AUTO) 39.3 % (21-51); MEAN CORPUSCULAR HEMOGLOBIN 29.7 PG (27.0-31.0); MEAN CORPUSCULAR HGB CONC 33.2 g/dL (33.0-36.5); MEAN CORPUSCULAR VOLUME 89.5 FL (78-98); MEAN PLATELET VOLUME 7.6 FL (7.4-10.4); MONOCYTES % (AUTO) 17.8 % (2-12); NEUTROPHILS % (AUTO) 35.3 % (42-75); PLATELET COUNT 292 X10'3 (140-440); RED BLOOD COUNT 4.24 X10'6 (4.70-6.10); RED CELL DISTRIBUTION WIDTH 14.7 % (11.5-14.5); WHITE BLOOD COUNT 5.7 X10'3 (4.5-11.0)
[2020-11-21 07:58] LABS: ALANINE AMINOTRANSFERASE 40 U/L (12-78); ALBUMIN 3.6 G/DL (3.4-5.0); ALBUMIN/GLOBULIN RATIO 0.9 (1.1-1.5); ALKALINE PHOSPHATASE 76 IU/L (46-116); ANION GAP 9 (8-16); ASPARTATE AMINO TRANSFERASE 24 U/L (10-37); BILIRUBIN,TOTAL 0.3 MG/DL (0.1-1.0); BLOOD UREA NITROGEN 27 MG/DL (7-18); BUN/CREATININE RATIO 27.3 (5.4-32.0); CALCIUM 9.8 MG/DL (8.5-10.1); CHLORIDE 107 MMOL/L (99-107); CREATININE 0.99 MG/DL (0.60-1.10); GLUCOSE 92 MG/DL (70-104); POTASSIUM 4.7 MMOL/L (3.5-5.1); SODIUM 140 MMOL/L (135-145); TOTAL CARBON DIOXIDE 23.7 MMOL/L (24-32); TOTAL PROTEIN 7.6 G/DL (6.4-8.2); VANCOMYCIN,TROUGH 18.4 UG/ML (6.0-14.0); eGFR 80 ML/MIN
[2020-11-21 08:25] LABS: PLATELET ESTIMATE NORMAL; TOTAL CELLS COUNTED 100
[2020-11-21] MEDS: HYDROcodone/acetaminophen 10/325mg tab PO PRN ×3 (09:32→19:26)
[2020-11-21 09:41] VITALS: BP 116/61
--- NOTE | 2020-11-21 16:11 | NUR ---
Reassessment: Pt PO intake avg 100% on a regular diet receiving double protein; meeting estimated nutrient needs. Last BM 11/21 with routine colace available. Remains on EtOH protocol with MVI, Thiamine, and Folic acid. Will continue to follow. Recommendations: 1) Continue regular diet 2) Double eggs WB, Double meat BIDLD 3) Continue routine Thiamine, Folic acid, and MVI for EtOH hx 4) Routine bowel care 5) Scaled wt this admit Addendum: 11/21/20 at [address] I have reviewed and agree with note by recruitment intern. Mckenzie Nunes RD Addendum: 11/21/20 at 1612 by Esme STEARNS DEVELOPMENT TECHNOLOGIST JOCY Amended: Links added.
[2020-11-21 18:00] VITALS: BP 130/81
--- NOTE | 2020-11-21 18:20 | NUR ---
GAVE REPORT TO ERNIE VIDAL
[2020-11-21] MEDS: temazepam 15mg capsule PO PRN (21:39)
[2020-11-21 22:00] VITALS: BP 122/65
[2020-11-22 06:38] LABS: BASOPHILS # (AUTO) 0.1 X10'3 (0-0.2); BASOPHILS % (AUTO) 1.9 % (0-1); EOSINOPHILS # (AUTO) 0.3 X10'3 (0-0.9); HEMOGLOBIN 12.5 g/dl (14.0-17.9); LYMPHOCYTES # (AUTO) 2.1 X10'3 (1.1-4.8); MEAN CORPUSCULAR HEMOGLOBIN 29.8 PG (27.0-31.0); MEAN CORPUSCULAR VOLUME 90.2 FL (78-98); MEAN PLATELET VOLUME 7.7 FL (7.4-10.4); MONOCYTES # (AUTO) 0.9 X10'3 (0-0.9); NEUTROPHILS % (AUTO) 37.1 % (42-75); PLATELET COUNT 285 X10'3 (140-440); RED BLOOD COUNT 4.21 X10'6 (4.70-6.10); WHITE BLOOD COUNT 5.5 X10'3 (4.5-11.0)
[2020-11-22 06:53] VITALS: BP 108/71
[2020-11-22 07:04] LABS: ALANINE AMINOTRANSFERASE 39 U/L (12-78); ALBUMIN 3.6 G/DL (3.4-5.0); ALBUMIN/GLOBULIN RATIO 0.9 (1.1-1.5); ALKALINE PHOSPHATASE 74 IU/L (46-116); ANION GAP 10 (8-16); ASPARTATE AMINO TRANSFERASE 23 U/L (10-37); BILIRUBIN,TOTAL 0.3 MG/DL (0.1-1.0); BLOOD UREA NITROGEN 26 MG/DL (7-18); BUN/CREATININE RATIO 27.7 (5.4-32.0); CALCIUM 9.9 MG/DL (8.5-10.1); CHLORIDE 107 MMOL/L (99-107); CREATININE 0.94 MG/DL (0.60-1.10); GLUCOSE 90 MG/DL (70-104); POTASSIUM 4.4 MMOL/L (3.5-5.1); SODIUM 142 MMOL/L (135-145); TOTAL PROTEIN 7.5 G/DL (6.4-8.2); eGFR 85 ML/MIN
[2020-11-22 07:06] LABS: TOTAL CELLS COUNTED 100
[2020-11-22 07:07] LABS: PLATELET ESTIMATE NORMAL
[2020-11-22] MEDS: lactobacillus rhamnosus 10,000 MMU CELLS/CAPSULE PO SCH ×2 (07:39→19:47)
[2020-11-22] MEDS: ESCITALOPRAM OXALATE 5 MG TABLET PO SCH (07:39)
[2020-11-22] MEDS: VANCOmycin 1250MG/NS 250ml Bag 250 ML IV SCH ×2 (07:39→19:47)
[2020-11-22] MEDS: docusate sod 100mg capsule PO SCH ×2 (07:39→20:00)
[2020-11-22] MEDS: folic acid 1mg tablet PO SCH (07:39)
[2020-11-22] MEDS: heparin, porcine 5000 units/ml vial SQ SCH ×2 (07:39→20:00)
[2020-11-22] MEDS: thiamine 100mg tablet PO SCH (07:39)
[2020-11-22] MEDS: multivitamins, therapeutics tablet PO SCH (07:39)
[2020-11-22] MEDS: K and/or MAG REPLACEMENT MC SCH ×2 (07:40→20:00)
[2020-11-22] MEDS: HYDROcodone/acetaminophen 10/325mg tab PO PRN ×2 (09:27→19:46)
[2020-11-22 10:14] VITALS: BP 137/85
--- NOTE | 2020-11-22 18:15 | NUR ---
Problems reprioritized. Patient report given, questions answered & plan of care reviewed with ERNIE Rey.
[2020-11-22 18:24] VITALS: BP 121/77
[2020-11-22 22:00] VITALS: BP 117/74
[2020-11-22] MEDS: temazepam 15mg capsule PO PRN (22:18)
[2020-11-23 06:00] VITALS: BP 95/59
--- NOTE | 2020-11-23 06:44 | NUR ---
Patient in room ORTHO 4015. I have received report from Krissy Weston and had the opportunity to ask questions and assume patient care.
[2020-11-23] MEDS: HYDROcodone/acetaminophen 10/325mg tab PO PRN ×4 (07:06→21:20)
[2020-11-23] MEDS: ESCITALOPRAM OXALATE 5 MG TABLET PO SCH (07:06)
[2020-11-23] MEDS: thiamine 100mg tablet PO SCH (07:06)
[2020-11-23] MEDS: multivitamins, therapeutics tablet PO SCH (07:07)
[2020-11-23] MEDS: lactobacillus rhamnosus 10,000 MMU CELLS/CAPSULE PO SCH ×2 (07:07→20:17)
[2020-11-23] MEDS: docusate sod 100mg capsule PO SCH ×2 (07:07→20:17)
[2020-11-23] MEDS: heparin, porcine 5000 units/ml vial SQ SCH ×2 (07:08→20:16)
[2020-11-23] MEDS: folic acid 1mg tablet PO SCH (07:08)
[2020-11-23 07:37] LABS: BASOPHILS # (AUTO) 0.1 X10'3 (0-0.2); BASOPHILS % (AUTO) 1.5 % (0-1); EOSINOPHILS # (AUTO) 0.3 X10'3 (0-0.9); HEMATOCRIT 38.1 % (42.0-52.0); HEMOGLOBIN 12.5 g/dl (14.0-17.9); LYMPHOCYTES % (AUTO) 36.9 % (21-51); MEAN CORPUSCULAR HEMOGLOBIN 29.7 PG (27.0-31.0); MEAN CORPUSCULAR HGB CONC 32.9 g/dL (33.0-36.5); MEAN CORPUSCULAR VOLUME 90.1 FL (78-98); MEAN PLATELET VOLUME 7.8 FL (7.4-10.4); MONOCYTES # (AUTO) 0.8 X10'3 (0-0.9); MONOCYTES % (AUTO) 15.5 % (2-12); NEUTROPHILS # (AUTO) 2.1 X10'3 (1.8-7.7); NEUTROPHILS % (AUTO) 40.1 % (42-75); PLATELET COUNT 289 X10'3 (140-440); RED BLOOD COUNT 4.22 X10'6 (4.70-6.10); RED CELL DISTRIBUTION WIDTH 14.8 % (11.5-14.5); WHITE BLOOD COUNT 5.4 X10'3 (4.5-11.0)
[2020-11-23 07:59] LABS: ALANINE AMINOTRANSFERASE 42 U/L (12-78); ALBUMIN 3.6 G/DL (3.4-5.0); ALBUMIN/GLOBULIN RATIO 0.9 (1.1-1.5); ALKALINE PHOSPHATASE 73 IU/L (46-116); ANION GAP 11 (8-16); ASPARTATE AMINO TRANSFERASE 26 U/L (10-37); BILIRUBIN,TOTAL 0.3 MG/DL (0.1-1.0); BLOOD UREA NITROGEN 28 MG/DL (7-18); BUN/CREATININE RATIO 29.8 (5.4-32.0); C-REACTIVE PROTEIN 0.65 MG/DL (0.0-0.5); CALCIUM 9.9 MG/DL (8.5-10.1); CHLORIDE 107 MMOL/L (99-107); CREATININE 0.94 MG/DL (0.60-1.10); GLUCOSE 92 MG/DL (70-104); POTASSIUM 4.4 MMOL/L (3.5-5.1); SODIUM 141 MMOL/L (135-145); TOTAL CARBON DIOXIDE 23.4 MMOL/L (24-32); TOTAL PROTEIN 7.5 G/DL (6.4-8.2); eGFR 85 ML/MIN
[2020-11-23] MEDS: K and/or MAG REPLACEMENT MC SCH ×2 (08:00→20:00)
[2020-11-23] MEDS: VANCOmycin 1250MG/NS 250ml Bag 250 ML IV SCH ×2 (08:27→20:16)
[2020-11-23 10:00] VITALS: BP 152/61
[2020-11-23 18:00] VITALS: BP 125/80
--- NOTE | 2020-11-23 18:38 | NUR ---
Patient in room ORTHO 4015. I have received report from ERNIE No and had the opportunity to ask questions and assume patient care.
--- NOTE | 2020-11-23 19:02 | NUR ---
Problems reprioritized. Patient report given, questions answered & plan of care reviewed with Anna Marie KLEIN.
[2020-11-23] MEDS: temazepam 15mg capsule PO PRN ×2 (21:59→23:41)
[2020-11-23 22:00] VITALS: BP 121/81
[2020-11-24] MEDS: HYDROcodone/acetaminophen 10/325mg tab PO PRN ×2 (03:16→08:06)
[2020-11-24 06:00] VITALS: BP 114/73
--- NOTE | 2020-11-24 06:28 | NUR ---
Patient in room ORTHO 4015. I have received report from Shalonda KLEIN and had the opportunity to ask questions and assume patient care.
--- NOTE | 2020-11-24 06:29 | NUR ---
Problems reprioritized. Patient report given, questions answered & plan of care reviewed with ERNIE No.
[2020-11-24] MEDS: docusate sod 100mg capsule PO SCH (08:00)
[2020-11-24] MEDS: K and/or MAG REPLACEMENT MC SCH (08:00)
[2020-11-24] MEDS: heparin, porcine 5000 units/ml vial SQ SCH (08:00)
[2020-11-24] MEDS: ESCITALOPRAM OXALATE 5 MG TABLET PO SCH (08:05)
[2020-11-24] MEDS: thiamine 100mg tablet PO SCH (08:06)
[2020-11-24] MEDS: multivitamins, therapeutics tablet PO SCH (08:06)
[2020-11-24] MEDS: lactobacillus rhamnosus 10,000 MMU CELLS/CAPSULE PO SCH (08:06)
[2020-11-24] MEDS: VANCOmycin 1250MG/NS 250ml Bag 250 ML IV SCH (08:07)
[2020-11-24] MEDS: folic acid 1mg tablet PO SCH (08:07)
--- NOTE | 2020-11-24 09:51 | NUR ---
PAGER ID: [phone] MESSAGE: Marybel KLEIN [id number] RE: Elmer Ramos [phone].. Pt anxious to discharge, per Dr Torrez ok to DC today?
[2020-11-24 10:00] VITALS: BP 123/81
[2020-11-24] MEDS ORDERED: LACT1CAP26 PO (10:48)
[2020-11-24] MEDS ORDERED: ESCI5TAB PO (10:48)
[2020-11-24] MEDS ORDERED: HYDR-3965 PO (10:48)
[2020-11-24] MEDS ORDERED: THIA50TA10 PO (10:48)
[2020-11-24] MEDS ORDERED: MULT-25 PO (10:48)
[2020-11-24] MEDS ORDERED: FOLI0.4T6 PO (10:48)
--- NOTE | 2020-11-24 11:40 | NUR ---
Pt discharged in private vehicle with sig other. Pt iv removed, no complications. Pt was educated about follow up apt and advised to quit ETOH and ilicit drug use. Pt belongings sent with pt. PT dischared in stable condiiton
== END 2020-11-24 11:43 | disposition home or self-care (01) | DRG 344 ==
LOC: ER 18:53 → ED HOLD 22:22 → ORTHO 4S 11-09 10:41
PROVIDERS: ADMIT Internal Medicine; ATTEND Family Medicine
DX: M00.9 Pyogenic arthritis, unspecified (principal); E83.52 Hypercalcemia; E87.1 Hypo-osmolality and hyponatremia; F10.129 Alcohol abuse with intoxication, unspecified; F12.90 Cannabis use, unspecified, uncomplicated; F17.200 Nicotine dependence, unspecified, uncomplicated; F15.10 Other stimulant abuse, uncomplicated; Z59.0 Homelessness; Z79.899 Other long term (current) drug therapy; Z82.49 Family history of ischemic heart disease and other diseases of the circulatory system
CPT/HCPCS: 36415; 71045; 76937; 80053; 80202; 80305; 80320; 83605; 83690; 83735; 84145; 85007; 85025; 85651; 86140; 87040; 87081; 96365; 99285; G0378; J1644; J2270; J3370; J7030

== ENCOUNTER 2021-05-31 09:49 | Emergency (ER) | payer MEDICAID ==
[~2021-05-31] VITALS: Ht 180.3 cm; Wt 81.8 kg
[~2021-05-31 09:49] MED LIST changes: +ESCI5TAB PO; +LACT1CAP26 PO; +MULT-25 PO; -NAPR-56 PO; +THIA50TA10 PO
[2021-05-31 11:14] VITALS: BP 136/88
[2021-05-31] MEDS ORDERED: HYDROcodone/acetaminophen 10/325mg tab PO ONE (11:30)
[2021-05-31] MEDS ORDERED: ketorolac trometh. 30mg/ml inj. IM ONE (11:30)
[2021-05-31] MEDS ORDERED: HYDR-3972 PO (11:39)
== END 2021-05-31 12:28 | disposition home or self-care (01) ==
LOC: ER 09:50
DX: S83.92XA Sprain of unspecified site of left knee, initial encounter (principal); M25.462 Effusion, left knee; F17.210 Nicotine dependence, cigarettes, uncomplicated; F15.10 Other stimulant abuse, uncomplicated; Z56.0 Unemployment, unspecified; Z79.899 Other long term (current) drug therapy
CPT/HCPCS: 29505; 73564; 96372; 99284; J1885

== ENCOUNTER 2021-07-01 12:14 | Emergency (ER) | payer MEDICAID ==
[~2021-07-01] VITALS: Ht 180.3 cm; Wt 84.0 kg
[2021-07-01 12:48] VITALS: BP 126/84
[2021-07-01] MEDS ORDERED: ketorolac trometh inj. 60 MG/2 ML VIAL IM ONE (13:15)
[2021-07-01] MEDS ORDERED: HYDROcodone/acetaminophen 5mg/325mg tablet PO ONE (13:15)
[2021-07-01] MEDS ORDERED: DICL20GE TOP (13:16)
--- NOTE | 2021-07-01 13:41 | NUR ---
called cab to cotton picking machine operator and take to [facility]..eta is 45min
== END 2021-07-01 14:07 | disposition home or self-care (01) ==
LOC: ER 12:15
DX: M17.0 Bilateral primary osteoarthritis of knee (principal); G89.29 Other chronic pain; F17.210 Nicotine dependence, cigarettes, uncomplicated; F15.10 Other stimulant abuse, uncomplicated; Z59.00 Homelessness unspecified
CPT/HCPCS: 96372; 99283; J1885

== ENCOUNTER → 2021-07-06 | Emergency (ER) | payer MEDICAID ==
[~2021-07-06] VITALS: Ht 180.3 cm; Wt 81.8 kg
[~2021-07-06] MED LIST changes: +ACET-1025 PO; +DICL20GE TOP
[2021-07-06 13:34] VITALS: BP 123/83
== END | disposition left against medical advice (07) ==
LOC: ER 13:30
DX: M25.519 Pain in unspecified shoulder (principal); Z53.21 Procedure and treatment not carried out due to patient leaving prior to being seen by health care provider

== ENCOUNTER 2021-07-07 15:15 | Emergency (ER) | payer MEDICAID ==
[~2021-07-07] VITALS: Ht 180.3 cm; Wt 81.0 kg
[~2021-07-07 15:15] MED LIST changes: -ACET-1025 PO
[2021-07-07 15:42] LABS: BASOPHILS # (AUTO) 0.1 X10'3 (0-0.2); BASOPHILS % (AUTO) 1.4 % (0-1); EOSINOPHILS # (AUTO) 0.2 X10'3 (0-0.9); EOSINOPHILS % (AUTO) 2.3 % (0-6); HEMATOCRIT 38.2 % (42.0-52.0); HEMOGLOBIN 13.2 g/dl (14.0-17.9); LYMPHOCYTES % (AUTO) 31.4 % (21-51); MEAN CORPUSCULAR HGB CONC 34.5 g/dL (33.0-36.5); MEAN CORPUSCULAR VOLUME 92.8 FL (78-98); MEAN PLATELET VOLUME 7.2 FL (7.4-10.4); MONOCYTES # (AUTO) 1.1 X10'3 (0-0.9); MONOCYTES % (AUTO) 11.8 % (2-12); NEUTROPHILS % (AUTO) 53.1 % (42-75); PLATELET COUNT 362 X10'3 (140-440); RED BLOOD COUNT 4.12 X10'6 (4.70-6.10); RED CELL DISTRIBUTION WIDTH 14.2 % (11.5-14.5); WHITE BLOOD COUNT 9.5 X10'3 (4.5-11.0)
[2021-07-07 15:55] LABS: ALANINE AMINOTRANSFERASE 45 U/L (12-78); ALBUMIN 3.5 G/DL (3.4-5.0); ALBUMIN/GLOBULIN RATIO 0.8 (1.1-1.5); ALKALINE PHOSPHATASE 80 IU/L (46-116); ANION GAP 11 (8-16); ASPARTATE AMINO TRANSFERASE 32 U/L (10-37); BILIRUBIN,TOTAL 0.3 MG/DL (0.1-1.0); BLOOD UREA NITROGEN 25 MG/DL (7-18); BUN/CREATININE RATIO 23.6 (5.4-32.0); CALCIUM 9.2 MG/DL (8.5-10.1); CHLORIDE 109 MMOL/L (99-107); CREATININE 1.06 MG/DL (0.60-1.10); GLUCOSE 105 MG/DL (70-104); LIPASE 203 U/L (73-393); POTASSIUM 4.4 MMOL/L (3.5-5.1); SODIUM 144 MMOL/L (135-145); TOTAL CARBON DIOXIDE 23.9 MMOL/L (24-32); TOTAL PROTEIN 7.8 G/DL (6.4-8.2); eGFR 74 ML/MIN
[2021-07-07 16:21] VITALS: BP 125/89
[2021-07-07 16:59] LABS: CLARITY,URINE CLEAR (Clear); GLUCOSE, URINE NEGATIVE (Neg); KETONES,URINE NEGATIVE (Neg); LEUKOCYTE ESTERASE ,URINE NEGATIVE (Neg); NITRITES, URINE NEGATIVE (Neg); OCCULT BLOOD,URINE TRACE-INTACT (Neg); PH,URINE 6.5 (4.8-8.0); PROTEIN,URINE NEGATIVE (Neg); UROBILINOGEN,URINE 0.2 E.U/dL (0.2-1.0)
[2021-07-07 17:01] LABS: COLOR,URINE STRAW (Yellow); UA COLLECTION TYPE URINAL
[2021-07-07] MEDS ORDERED: ACET-1025 PO (17:02)
[2021-07-07 17:06] LABS: BACTERIA,URINE NONE SEEN /HPF (Neg); MUCUS STRANDS NONE SEEN /LPF (Neg); RBC,URINE 0-2 /HPF (0-2); SQUAMOUS EPITHELIAL CELL,UR NONE SEEN /LPF (FEW); WBC,URINE 0-4 /HPF (0-4)
== END 2021-07-07 17:30 | disposition home or self-care (01) ==
LOC: ER 15:16
DX: K92.1 Melena (principal); F15.10 Other stimulant abuse, uncomplicated; G89.29 Other chronic pain
CPT/HCPCS: 36415; 80053; 81001; 83690; 85025; 99283

== ENCOUNTER 2022-05-14 16:12 | Emergency (ER) | payer MEDICAID ==
[~2022-05-14] VITALS: Ht 180.3 cm; Wt 77.3 kg
[2022-05-14 16:16] VITALS: BP 126/80
[2022-05-14 17:51] LABS: BASOPHILS # (AUTO) 0.1 X10'3 (0-0.2); BASOPHILS % (AUTO) 0.6 % (0-1); EOSINOPHILS # (AUTO) 0.2 X10'3 (0-0.9); EOSINOPHILS % (AUTO) 1.8 % (0-6); HEMATOCRIT 35.2 % (42.0-52.0); LYMPHOCYTES # (AUTO) 3.2 X10'3 (1.1-4.8); LYMPHOCYTES % (AUTO) 32.1 % (21-51); MEAN CORPUSCULAR HEMOGLOBIN 30.8 PG (27.0-31.0); MEAN CORPUSCULAR VOLUME 90.6 FL (78-98); MEAN PLATELET VOLUME 7.3 FL (7.4-10.4); MONOCYTES # (AUTO) 1.1 X10'3 (0-0.9); NEUTROPHILS # (AUTO) 5.5 X10'3 (1.8-7.7); NEUTROPHILS % (AUTO) 54.5 % (42-75); PLATELET COUNT 284 X10'3 (140-440); RED BLOOD COUNT 3.89 X10'6 (4.70-6.10); RED CELL DISTRIBUTION WIDTH 13.9 % (11.5-14.5)
[2022-05-14 18:04] LABS: ALANINE AMINOTRANSFERASE 35 U/L (12-78); ALBUMIN 3.5 G/DL (3.4-5.0); ALBUMIN/GLOBULIN RATIO 0.9 (1.1-1.5); ALKALINE PHOSPHATASE 78 IU/L (46-116); ANION GAP 13 (8-16); ASPARTATE AMINO TRANSFERASE 31 U/L (10-37); BILIRUBIN,TOTAL 0.6 MG/DL (0.1-1.0); BLOOD UREA NITROGEN 19 MG/DL (7-18); CALCIUM 9.6 MG/DL (8.5-10.1); CHLORIDE 99 MMOL/L (99-107); GLUCOSE 89 MG/DL (70-104); POTASSIUM 3.8 MMOL/L (3.5-5.1); SODIUM 134 MMOL/L (135-145); TOTAL CARBON DIOXIDE 22.1 MMOL/L (24-32); TOTAL PROTEIN 7.6 G/DL (6.4-8.2); eGFR 78 ML/MIN
[2022-05-14] MEDS ORDERED: NAPR-56 PO (20:44)
[2022-05-14] MEDS ORDERED: HYDR-3965 PO (20:44)
[2022-05-14] MEDS ORDERED: HYDROcodone/acetaminophen 10/325mg tab PO ONE (20:45)
[2022-05-14] MEDS ORDERED: naproxen 500mg tablet PO ONE (20:45)
--- NOTE | 2022-05-14 20:51 | NUR ---
PO MED GIVEN X2
== END 2022-05-14 20:55 | disposition home or self-care (01) ==
LOC: ER 16:13
DX: M02.362 Reiter's disease, left knee (principal); F15.10 Other stimulant abuse, uncomplicated; G89.29 Other chronic pain; Z79.899 Other long term (current) drug therapy
CPT/HCPCS: 36415; 73564; 80053; 85025; 99284

== ENCOUNTER 2022-05-16 09:38 | Emergency (ER) | payer MEDICAID ==
[~2022-05-16] VITALS: Ht 170.2 cm; Wt 79.5 kg
[~2022-05-16 09:38] MED LIST changes: +HYDR-3965 PO; +NAPR-56 PO
[2022-05-16 10:23] VITALS: BP 119/77
[2022-05-16] MEDS: HYDROcodone/acetaminophen 10/325mg tab PO ONE (13:09)
== END 2022-05-16 13:10 | disposition home or self-care (01) ==
LOC: ER 09:38
DX: M25.562 Pain in left knee (principal); G89.29 Other chronic pain; F15.10 Other stimulant abuse, uncomplicated; Z79.899 Other long term (current) drug therapy
CPT/HCPCS: 73560; 99283